=== PATIENT | male | born 1940 | race Caucasian/White ===

== ENCOUNTER 2017-06-16 00:11 | Emergency (ER) | payer MEDICARE ==
[~2017-06-16] VITALS: Ht 177.8 cm; Wt 58.1 kg
[~2017-06-16 00:11] MED LIST: ASPI-484 PO; ASPI-667 PO; VERA240C2 PO; [UNRECOGNIZED DRUG - CODE] PO
[2017-06-16] MEDS ORDERED: ADENOSCAN IV ONE (00:17)
--- NOTE | 2017-06-16 00:19 | PCM.EKG ---
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
[2017-06-16 00:34] LABS: BASOPHIL # 0.1 10^3/uL (0.0-0.1); BASOPHIL % 2.4 % (0.0-0.2); EOSINOPHIL # 0.5 10^3/uL (0.0-0.2); EOSINOPHIL % 8.9 % (0.0-5.0); HEMOGLOBIN 14.2 g/dL (13.9-16.3); LYMPHOCYTES # 1.2 10^3/uL (1.0-4.8); MEAN CELL HGB 30.8 pg (26-34); MEAN CELL HGB CONCENTRATION 33.6 g/dL (33-37); MEAN CORP VOLUME 91.8 fL (78-100); MEAN PLATELET VOLUME 10.6 fL (7.8-11.0); MONOCYTES # 0.6 10^3/uL (0.3-0.8); MONOCYTES % 10.5 % (5.0-12.0); NEUTROPHIL # 3.3 10^3/uL (1.8-7.7); RED CELL DISTRIBUTION WIDTH 13.9 % (11.5-14.5); WHITE BLOOD CELL 5.7 10^3/uL (4.5-11.0)
[2017-06-16] MEDS ORDERED: LOPRESSER ONE (00:51)
[2017-06-16] MEDS ORDERED: LOPRESSER IVP STA (00:53)
--- NOTE | 2017-06-16 00:56 | ER.PDOC ---
General Chief Complaint: General Complaint Stated Complaint: POSS A-FIB Time seen by MD: 00:55 Source: patient Exam Limitations: no limitations History of Present Illness Initial Comments Palpitations Timing/Duration: 1 hour Quality: fast Activities at Onset: rest Associated Symptoms: denies symptoms Prior symptoms/Treatment: Similar symptoms previous, Recenly Seen, Treated by Doctor Allergies: Coded Allergies: No Known Allergies (Unverified , 11/08/15) Past Medical History Medical History: cardiac problems, hypertension Surgical History: other Social History Smoking: non-smoker Alcohol Use: none Drug Use: none Constitutional: no symptoms reported Respiratory: no symptoms reported Cardiovascular: see HPI Gastrointestinal: no symptoms reported Genitourinary: no symptoms reported Musculoskeletal: no symptoms reported All Other Systems: Reviewed and Negative Physical Exam General Appearance: No Apparent Distress, WD/WN HEENT: PERRL/EOMI, Normal ENT Inspection, TMs Normal, Pharynx Normal Neck: Non-Tender, Full Range of Motion, Supple, Normal Inspection Respiratory: chest non-tender, lungs clear, normal breath sounds, no respiratory distress, no accessory muscle use Cardiovascular: Normal Peripheral Pulses, Regular Rate, Rhythm, No Edema, No Gallop, No JVD, No Murmur, Tachycardia Gastrointestinal: Normal Bowel Sounds, No Organomegaly, No Pulsatile Mass, Non Tender, Soft Extremities: Normal Range of Motion, Non-Tender, Normal Inspection, No Pedal Edema, No Calf Tenderness, Normal Capillary Refill Neurologic/Psychiatric: policy intern II-XII NML as Tested, No Motor/Sensory Deficits, Alert, Normal Mood/Affect, Oriented x 3 Skin: Normal Color, Warm/Dry Lymphatic: No Adenopathy Results/Orders Results/Orders Laboratory Tests Test 06/16/17 00:20 White Blood Count 5.7 10^3/uL (4.5-11.0) Red Blood Count 4.61 10^6/uL (4.50-5.90) Hemoglobin 14.2 g/dL (13.9-16.3) Hematocrit 42.3 % (37.0-53.0) Mean Corpuscular Volume 91.8 fL (78-100) Mean Corpuscular Hemoglobin 30.8 pg (26-34) Mean Corpuscular Hemoglobin Concent 33.6 g/dL (33-37) Red Cell Distribution Width 13.9 % (11.5-14.5) Platelet Count 214 10^3/uL (150-400) Mean Platelet Volume 10.6 fL (7.8-11.0) Neutrophils (%) (Auto) 58.0 % (41.0-85.0) Lymphocytes (%) (Auto) 20.0 % (24.0-44.0) Monocytes (%) (Auto) 10.5 % (5.0-12.0) Neutrophils # (Auto) 3.3 10^3/uL (1.8-7.7) Lymphocytes # (Auto) 1.2 10^3/uL (1.0-4.8) Monocytes # (Auto) 0.6 10^3/uL (0.3-0.8) Absolute Immature Granulocyte (auto 0.01 10^3 u/L (0-2) Eosinophils % 8.9 % (0.0-5.0) Basophils % 2.4 % (0.0-0.2) Basophils # 0.1 10^3/uL (0.0-0.1) Eosinophil Count 0.5 10^3/uL (0.0-0.2) Percent Immature Gran (Cell Imm) 0.20 % (0.00-0.50) Progress Progress Patient converted to NSR with Adenosine. Feels fine to go home. EKG/XRAY/CT/US EKG Comments: SVT XRAY: chest (No active disease) #2 EKG: NSR Departure Time of Disposition: 01:23 Disposition: 01 HOME, SELF-CARE Impression: Primary Impression: SVT (supraventricular tachycardia) Condition: Improved Referrals: TONE CAMARENA MYCOLOGY TEACHER (PCP) PRIMARY CARE PROVIDER Additional Instructions: F/U with your Cereal Chemist in 2-3 days Duration or Time Spent with Pa: 90 mins Critical Care Note Total Time (mins): 90 COLLEEN SANTANA MD Jun 16, 2017 00:55
[2017-06-16 01:03] LABS: ALANINE AMINOTRANSFERASE(ML) 23 U/L (12-78); ALKALINE PHOSPHATASE 122 U/L (50-136); ASPARTATE AMINO TRANSFERASE 22 U/L (0-35); CALCIUM 8.6 mg/dL (8.4-10.5); CARBON DIOXIDE 23.3 mmol/L (20.0-32); GLUCOSE 106 mg/dL (70-110)
[2017-06-16 01:20] VITALS: BP 145/77
[2017-06-16] MEDS ORDERED: ADENOSCAN IV STA (01:20)
--- NOTE | 2017-06-16 01:23 | DIREP ---
PROCEDURE:CHEST 1 VIEW COMPARISON:[facility], CR, XRAY CHEST SINGLE VW, 05/16/2017, 03:13 AM. [facility], CR, XRAY CHEST SINGLE VW, 03/13/2017, 12:22 PM. INDICATIONS:Palpitations FINDINGS: LUNGS/PLEURA:No significant pulmonary parenchymal abnormalities. No effusions. VASCULATURE:Normal. Unremarkable pulmonary vasculature. CARDIAC:Normal. No cardiac silhouette abnormality or cardiomegaly. MEDIASTINUM:Normal. No visible mass or adenopathy. BONES:Normal. No fracture or visible bony lesion. OTHER:Negative. CONCLUSION:No acute cardiopulmonary abnormalities. Dictated by: Paresh Upton M.D. on 06/16/2017 at 01:22 AM
--- NOTE | 2017-06-16 01:25 | NUR ---
IV DC'D TIP INTACT, NO BLEEDING
[2017-06-16 01:33] VITALS: BP 145/77
--- NOTE | 2017-06-16 03:33 | PCM.EKG ---
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: TAMIA : 1940 Requested By: COLLEEN SANTANA Order Number: [id number] Reading MD: Colleen SANTANA Measurements Intervals [place] Rate: 91 P: 69 [place]: 142 QRS: 88 QRSD: 98 T: 58 QT: 338 QTc: 415 Interpretive Statements Normal sinus rhythm with sinus arrhythmia Lateral infarct, age undetermined Marked ST abnormality, possible inferior subendocardial injury Abnormal ECG Compared to ECG 05/16/2017 04:17:32 Myocardial infarct finding now present ST (T wave) deviation now present Electronically Signed On 06-16-2017 6:51:29 CDT by Colleen SANTANA Please click the below link to view image of tracing.
== END 2017-06-16 01:28 | disposition home or self-care (01) ==
LOC: ER 00:11
DX: I47.1 Supraventricular tachycardia (principal); I10 Essential (primary) hypertension; R79.1 Abnormal coagulation profile
CPT/HCPCS: 36415; 71045; 80053; 82550; 82553; 83880; 84484; 85025; 85610; 85730; 93005 ×2; 96374; 96375; 99291; 99292; J0153; J3490

== ENCOUNTER 2017-06-17 09:05 | Emergency (ER) | payer MEDICARE ==
[~2017-06-17] VITALS: Ht 177.8 cm; Wt 58.2 kg
--- NOTE | 2017-06-17 09:10 | NUR ---
arrival patient arrived via pov with complaints of palpitations patient has history of svt
--- NOTE | 2017-06-17 09:15 | NUR ---
triage patient placed on monitor svt at 178 noted rt in room upon arrival ekg obtained 20 gauge iv started in right ac
[2017-06-17 09:18] VITALS: BP 161/110
--- NOTE | 2017-06-17 09:20 | NUR ---
medications patient on quality assurance monitor final ns bolus initiated 6mg adenosine iv push patient converted to normal sinus rythm 86
[2017-06-17] MEDS ORDERED: ADENOSCAN IV ONE (09:21)
[2017-06-17] MEDS ORDERED: NS 1000ML 1,000 ML ONE (09:21)
[2017-06-17] MEDS ORDERED: CARDIZEM PO STA (09:32)
--- NOTE | 2017-06-17 09:41 | ER.PDOC ---
General Chief Complaint: Palpitations Stated Complaint: Arrhythmia Time seen by MD: 09:36 Source: patient, family Exam Limitations: no limitations History of Present Illness Initial Comments 76 year old white male with palpitation. History of SVT for a while, recurrent and had similar event yesterday treated in ER. Started having palpitation again around 2 hours prior to consult. No chest pain, no shortness of breath. Quality: fast, pounding heart beat History of: SVT Associated Symptoms: denies symptoms Allergies: Coded Allergies: No Known Allergies (Unverified , 11/08/15) Past Medical History Medical History: arrhythmia, asthma, cardiac problems, COPD, hypertension, other Surgical History: other Social History Smoking: non-smoker Drug Use: none Constitutional: no symptoms reported EENTM: no symptoms reported Respiratory: no symptoms reported Cardiovascular: see HPI Gastrointestinal: no symptoms reported Genitourinary: no symptoms reported Musculoskeletal: no symptoms reported Skin: no symptoms reported Psychiatric/Neurological: no symptoms reported Endocrine: no symptoms reported Hematologic/Lymphatic: no symptoms reported Physical Exam General Appearance: No Apparent Distress, WD/WN HEENT: PERRL/EOMI, Normal ENT Inspection, TMs Normal, Pharynx Normal Neck: Non-Tender, Full Range of Motion, Supple, Normal Inspection Respiratory: chest non-tender, lungs clear, normal breath sounds, no respiratory distress, no accessory muscle use Cardiovascular: No Edema, No Gallop, No JVD, No Murmur, Tachycardia Gastrointestinal: Normal Bowel Sounds, No Organomegaly, No Pulsatile Mass, Non Tender, Soft Rectal: Normal Exam Extremities: Normal Range of Motion, Non-Tender, Normal Inspection, No Pedal Edema, No Calf Tenderness, Normal Capillary Refill 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 Repeat EKG showed NSR 78 Departure Time of Disposition: 10:38 Disposition: 01 HOME, SELF-CARE Impression: Primary Impression: PSVT (paroxysmal supraventricular tachycardia) Condition: Stable Referrals: TONE CAMARENA BLUE LINE HANGER (PCP) PRIMARY CARE PROVIDER Additional Instructions: Follow up PCP RTER prn Diltiazem 30 mg po tid Duration or Time Spent with Pa: 30 JENA ACOSTA MD Jun 17, 2017 09:40
[2017-06-17] MEDS ORDERED: CARDIZEM ONE (09:44)
[2017-06-17 09:50] LABS: BASOPHIL # 0.1 10^3/uL (0.0-0.1); BASOPHIL % 1.8 % (0.0-0.2); EOSINOPHIL # 0.4 10^3/uL (0.0-0.2); EOSINOPHIL % 7.6 % (0.0-5.0); HEMOGLOBIN 13.3 g/dL (13.9-16.3); LYMPHOCYTES # 0.8 10^3/uL (1.0-4.8); LYMPHOCYTES % 14.9 % (24.0-44.0); MEAN CELL HGB 31.4 pg (26-34); MEAN CELL HGB CONCENTRATION 33.8 g/dL (33-37); MEAN CORP VOLUME 93.1 fL (78-100); MEAN PLATELET VOLUME 10.5 fL (7.8-11.0); MONOCYTES # 0.4 10^3/uL (0.3-0.8); NEUTROPHIL # 3.4 10^3/uL (1.8-7.7); NEUTROPHILS % 67.5 % (41.0-85.0); RED CELL DISTRIBUTION WIDTH 13.9 % (11.5-14.5)
--- NOTE | 2017-06-17 10:00 | NUR ---
status patient remains in normal sinus rhythm 78
[2017-06-17 10:14] LABS: CALCIUM 8.1 mg/dL (8.4-10.5); CARBON DIOXIDE 26.9 mmol/L (20.0-32)
--- NOTE | 2017-06-17 10:21 | DIREP ---
PROCEDURE:CHEST 1 VIEW COMPARISON:[facility], CR, XRAY CHEST SINGLE VW, 06/16/2017, 00:40 AM. INDICATIONS:svt FINDINGS: LUNGS/PLEURA:There is pulmonary hyperinflation consistent with underlying COPD. No focal consolidation. No effusions. VASCULATURE:Normal. Unremarkable pulmonary vasculature. CARDIAC:Normal. No cardiac silhouette abnormality or cardiomegaly. MEDIASTINUM:Normal. No visible mass or adenopathy. BONES:Normal. No fracture or visible bony lesion. OTHER:Negative. CONCLUSION:COPD. Dictated by: Arnulfo Bueno M.D. on 06/17/2017 at 10:19 AM
--- NOTE | 2017-06-17 10:41 | PCM.EKG ---
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
--- NOTE | 2017-06-17 10:41 | PCM.EKG ---
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
[2017-06-17] MEDS ORDERED: ADENOSCAN IV STA (10:48)
[2017-06-17 11:15] VITALS: BP 161/110
== END 2017-06-17 10:58 | disposition home or self-care (01) ==
LOC: ER 09:05
DX: I47.1 Supraventricular tachycardia (principal); J44.9 Chronic obstructive pulmonary disease, unspecified; I10 Essential (primary) hypertension; R79.1 Abnormal coagulation profile
CPT/HCPCS: 36415; 71045; 80053; 82550; 82553; 83880; 84484; 85025; 85610; 85730; 93005 ×2; 96374; 99285; J0153; J7030

== ENCOUNTER 2017-06-22 06:46 | Emergency (ER) | payer MEDICARE ==
[~2017-06-22] VITALS: Ht 177.8 cm; Wt 58.1 kg
--- NOTE | 2017-06-22 06:47 | NUR ---
ARRIVAL PT ARRIVED VIA WHEELCHAIR TO ER 3 C/O "RACING HEART BEAT". PT STATES "I THINK MY A-FIB IS ACTING UP". PT PLACED ON SUPERCALENDER OPERATOR. EDP NOTIFIED OF PT ARRIVAL. RT AT BEDSIDE FOR EKG.
[2017-06-22 06:55] VITALS: BP 146/117
[2017-06-22] MEDS ORDERED: ADENOSCAN IV ONE (06:56)
[2017-06-22] MEDS ORDERED: NS 1000ML 1,000 ML ONE (06:56)
--- NOTE | 2017-06-22 07:02 | NUR ---
ADENOSINE ADENOSINE 6MG ADMINSTERED AT THIS TIME. RNX2 AND RT AT BEDSIDE. SUCTION AVAILABLE. PT REMAINS ON VINEYARD SUPERVISOR. PT TOLERATED WELL.
[2017-06-22] MEDS ORDERED: CARDIZEM PO STA (07:08)
[2017-06-22] MEDS ORDERED: ADENOSCAN IV STA (07:08)
--- NOTE | 2017-06-22 07:08 | ER.PDOC ---
General Chief Complaint: Palpitations Stated Complaint: RACING HEART BEAT Time seen by MD: 06:52 Source: patient Exam Limitations: no limitations History of Present Illness Initial Comments Freq shanauuance for pt. Here last week for same. Feels palps but no other c/o like SOB, pain, nausea, weakness. Timing/Duration: 1-3 hours Quality: fast, pounding heart beat Activities at Onset: sleep Associated Symptoms: denies symptoms Allergies: Coded Allergies: No Known Allergies (Unverified , 11/08/15) Past Medical History Medical History: arrhythmia, cardiac problems, hypertension Surgical History: tonsillectomy Social History Smoking: quit greater than 1 year Alcohol Use: occassionally Drug Use: none Constitutional: see HPI EENTM: no symptoms reported Respiratory: no symptoms reported Cardiovascular: see HPI All Other Systems: Reviewed and Negative Physical Exam General Appearance: No Apparent Distress, WD/WN HEENT: PERRL/EOMI Neck: Non-Tender, Full Range of Motion, Normal Inspection Respiratory: chest non-tender, lungs clear, normal breath sounds Cardiovascular: No Edema, Tachycardia, Other (rapid, regular) Gastrointestinal: Normal Bowel Sounds, Non Tender, Soft Neurologic/Psychiatric: No Motor/Sensory Deficits, Alert, Normal Mood/Affect, Oriented x 3 Skin: Normal Color, Warm/Dry Progress Progress Motior and intiial EKG show SVT. Given 6mg Adenosine with conversion to NSR and relief of palpitations. Remained that way during ED stay. Departure Time of Disposition: 07:51 Disposition: 01 HOME, SELF-CARE Impression: Primary Impression: Palpitations Additional Impression: Sustained SVT Condition: Stable Patient Instructions: Supraventricular Tachycardia Referrals: TONE CAMARENA IMPORT CLERK (PCP) PRIMARY CARE PROVIDER Additional Instructions: Increase diltiazem to 60 mg evening dose. Return as needed. Duration or Time Spent with Pa: 60 Critical Care Note Total Time (mins): 30 MARK BAKER DO Jun 22, 2017 07:08
[2017-06-22] MEDS ORDERED: CARDIZEM ONE (07:10)
--- NOTE | 2017-06-22 07:10 | PCM.EKG ---
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1940 Requested By: MARK GRAVES Order Number: [id number] Reading MD: Mark Graves Measurements Intervals [place] Rate: 168 P: [place]: QRS: 62 QRSD: 160 T: 70 QT: 278 QTc: 464 Interpretive Statements Wide QRS tachycardia Nonspecific intraventricular block Abnormal ECG Compared to ECG 06/16/2017 00:29:53 Wide-QRS tachycardia now present Sinus rhythm no longer present Sinus arrhythmia no longer present Myocardial infarct finding no longer present ST (T wave) deviation no longer present Electronically Signed On 06-24-2017 6:58:47 CDT by Mark Graves Please click the below link to view image of tracing.
[2017-06-22 07:13] VITALS: BP 172/98
[2017-06-22 07:22] LABS: BASOPHIL # 0.1 10^3/uL (0.0-0.1); BASOPHIL % 1.6 % (0.0-0.2); EOSINOPHIL # 0.6 10^3/uL (0.0-0.2); EOSINOPHIL % 10.4 % (0.0-5.0); HEMOGLOBIN 13.5 g/dL (13.9-16.3); LYMPHOCYTES # 1.4 10^3/uL (1.0-4.8); LYMPHOCYTES % 23.8 % (24.0-44.0); MEAN CELL HGB 30.8 pg (26-34); MEAN CELL HGB CONCENTRATION 33.3 g/dL (33-37); MEAN CORP VOLUME 92.5 fL (78-100); MEAN PLATELET VOLUME 10.2 fL (7.8-11.0); MONOCYTES # 0.5 10^3/uL (0.3-0.8); MONOCYTES % 9.2 % (5.0-12.0); NEUTROPHIL # 3.2 10^3/uL (1.8-7.7); NEUTROPHILS % 54.8 % (41.0-85.0); RED CELL DISTRIBUTION WIDTH 13.9 % (11.5-14.5); WHITE BLOOD CELL 5.8 10^3/uL (4.5-11.0)
[2017-06-22 07:35] VITALS: BP 154/88
[2017-06-22 07:41] LABS: ALANINE AMINOTRANSFERASE(ML) 17 U/L (12-78); ALKALINE PHOSPHATASE 109 U/L (50-136); ASPARTATE AMINO TRANSFERASE 20 U/L (0-35); CALCIUM 8.4 mg/dL (8.4-10.5); CARBON DIOXIDE 24.8 mmol/L (20.0-32); GLUCOSE 103 mg/dL (70-110)
[2017-06-22 08:00] VITALS: BP 154/82
[2017-06-22 08:03] VITALS: BP 154/88
--- NOTE | 2017-06-22 09:53 | PCM.EKG ---
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: : 1940 Requested By: MARK GRAVES Order Number: [id number] Reading MD: Mark Graves Measurements Intervals [place] Rate: 86 P: 68 [place]: 144 QRS: 89 QRSD: 94 T: 45 QT: 396 QTc: 473 Interpretive Statements Sinus rhythm with premature supraventricular complexes Lateral infarct, age undetermined Marked ST abnormality, possible inferior subendocardial injury Abnormal ECG Compared to ECG 06/16/2017 00:29:53 Atrial premature complex(es) now present Sinus arrhythmia no longer present Myocardial infarct finding still present ST (T wave) deviation still present Electronically Signed On 06-24-2017 6:58:50 CDT by Mark Graves Please click the below link to view image of tracing.
== END 2017-06-22 08:05 | disposition home or self-care (01) ==
LOC: ER 06:46
DX: R00.2 Palpitations (principal); I47.1 Supraventricular tachycardia; I10 Essential (primary) hypertension; Z87.891 Personal history of nicotine dependence
CPT/HCPCS: 36415; 80053; 84484; 85025; 93005 ×2; 96374; 99291; J0153; J7030

== ENCOUNTER 2017-06-28 15:23 | Emergency (ER) | payer MEDICARE ==
[~2017-06-28] VITALS: Ht 177.8 cm; Wt 58.1 kg
[2017-06-28] MEDS ORDERED: ADENOSCAN IV ONE ×3 (15:32→15:37)
--- NOTE | 2017-06-28 15:32 | NUR ---
RT RT IN ROOM FOR EKG
--- NOTE | 2017-06-28 15:33 | NUR ---
ARRIVAL PATIENT ARRIVED TO ED3 VIA W/C WITH SPOUSE, C/O OF HEART RACING, DOES HAVE A HISTORY OF SVT, CARDICA MONITOR APPLIED, CALLED FOR EKG, HEART RATE 169, DOCTOR MISHA TO ROOM, IV INITIATED.
[2017-06-28 15:35] VITALS: BP 167/117
--- NOTE | 2017-06-28 15:38 | NUR ---
MEDICATION ADENOSINE IV PUSHED, DOCTOR CABRAL AT BEDSIDE, NO DECREASE IN HEART RATE. ORDER FOR RECEIVED FOR ADENOSINE 12MG.
--- NOTE | 2017-06-28 15:42 | NUR ---
MEDICATION ADENOSINE 12MG GIVEN IV, DOCTOR HAACKE AND RT AT BEDSIDE. NO DISTRESS NOTED.
[2017-06-28] MEDS ORDERED: ADENOSCAN IV STA ×2 (15:50)
[2017-06-28 15:53] VITALS: BP 195/95
[2017-06-28] MEDS ORDERED: ATROVENT IH STA (15:57)
[2017-06-28] MEDS ORDERED: XOPENEX IH STA (15:57)
--- NOTE | 2017-06-28 16:16 | ER.PDOC ---
General Chief Complaint: Palpitations Stated Complaint: PALPITATIONS Time seen by MD: 16:11 Source: patient Exam Limitations: no limitations History of Present Illness Initial Comments Patient with rapid heart rate. He has a history of recurrent SVT. This occured shortly after using his albuterol inhaler. He has a history of Asthma. he denies any chest pain, just some mild shortness of breath. Timing/Duration: 1/2 hour Quality: fast, pounding heart beat History of: caffeine, SVT Associated Symptoms: shortness of breath, weakness Prior symptoms/Treatment: Similar symptoms previous Allergies: Coded Allergies: No Known Allergies (Unverified , 11/08/15) Home Meds Unable to Obtain Active Prescriptions or Reported Meds Past Medical History Medical History: asthma, cardiac problems (SVT), hypertension Surgical History: other Social History Smoking: non-smoker Alcohol Use: none Drug Use: none Reviewed Nursing Reviewed: Vital Signs, Abn. Noted, Nursing Assessment Constitutional: weakness (Generalized mild ) EENTM: no symptoms reported Respiratory: shortness of breath, wheezing Cardiovascular: palpitations Gastrointestinal: no symptoms reported Genitourinary: no symptoms reported Musculoskeletal: no symptoms reported Skin: no symptoms reported Psychiatric/Neurological: no symptoms reported Endocrine: no symptoms reported Hematologic/Lymphatic: no symptoms reported All Other Systems: Reviewed and Negative Physical Exam General Appearance: WD/WN, Mild Distress, Thin HEENT: PERRL/EOMI, Normal ENT Inspection, TMs Normal, Pharynx Normal Neck: Non-Tender, Full Range of Motion, Supple, Normal Inspection Respiratory: wheezing (much worse after IV Adenosine) Cardiovascular: Tachycardia Gastrointestinal: Normal Bowel Sounds, No Organomegaly, No Pulsatile Mass, Non Tender, Soft Extremities: Normal Range of Motion, Non-Tender, Normal Inspection, No Pedal Edema, No Calf Tenderness, Normal Capillary Refill Neurologic/Psychiatric: 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 Patient feeling much better, anxious to go home (17:28) EKG/XRAY/CT/US XRAY: chest (NAD) Departure Time of Disposition: 17:28 Disposition: 01 HOME, SELF-CARE Impression: Primary Impression: SVT (supraventricular tachycardia) Additional Impression: Asthma Qualified Codes: J45.909 - Unspecified asthma, uncomplicated Condition: Improved Patient Instructions: Supraventricular Tachycardia Referrals: TONE CAMARENA YEAST DISTILLER (PCP) PRIMARY CARE PROVIDER Additional Instructions: Keep appointment with Dr. Aguayo on July 06. New Rx for Xopenex, and Atrovent for asthma. Follow up with PCP in 3-4 days. Scripts Unable to Obtain Active Prescriptions or Reported Meds Duration or Time Spent with Pa: 1 hr BECKY CABRAL DO Jun 28, 2017 16:16
[2017-06-28 16:26] LABS: BASOPHIL # 0.1 10^3/uL (0.0-0.1); BASOPHIL % 1.9 % (0.0-0.2); EOSINOPHIL # 0.6 10^3/uL (0.0-0.2); EOSINOPHIL % 11.3 % (0.0-5.0); HEMOGLOBIN 13.3 g/dL (13.9-16.3); LYMPHOCYTES # 0.9 10^3/uL (1.0-4.8); LYMPHOCYTES % 16.9 % (24.0-44.0); MEAN CELL HGB 31.2 pg (26-34); MEAN CELL HGB CONCENTRATION 33.6 g/dL (33-37); MEAN PLATELET VOLUME 10.3 fL (7.8-11.0); MONOCYTES # 0.5 10^3/uL (0.3-0.8); MONOCYTES % 9.3 % (5.0-12.0); NEUTROPHIL # 3.3 10^3/uL (1.8-7.7); NEUTROPHILS % 60.4 % (41.0-85.0); RED CELL DISTRIBUTION WIDTH 13.6 % (11.5-14.5); WHITE BLOOD CELL 5.4 10^3/uL (4.5-11.0)
--- NOTE | 2017-06-28 16:26 | PCM.EKG ---
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 Reading MD: Naisr Cabral Measurements Intervals [place] Rate: 82 P: 67 PA: 134 QRS: 87 QRSD: 104 T: 48 QT: 392 QTc: 457 Interpretive Statements Normal sinus rhythm Lateral infarct, age undetermined ST & T wave abnormality, consider inferior ischemia Abnormal ECG Compared to ECG 06/22/2017 07:12:36 Possible ischemia now present SVT no longer present Myocardial infarct finding still present ST Changes Laterally Electronically Signed On 06-29-2017 6:35:34 CDT by Nasir Cabral Please click the below link to view image of tracing.
--- NOTE | 2017-06-28 16:27 | PCM.EKG ---
[facility] Test Date: 2017-06-28 Test Time: 15:35:45 Pat Name: ASCENCION LAZARO Department: [id number] Room: Gender: M Electronic Wirer: RT : 1940 Requested By: NASIR CABRAL Order Number: [id number] Reading MD: Nasir Cabral Measurements Intervals [place] Rate: 169 P: CT: QRS: 56 QRSD: 162 T: 70 QT: 274 QTc: 459 Interpretive Statements SVT Abnormal ECG Compared to ECG 06/22/2017 07:12:36 SVT Electronically Signed On 06-29-2017 6:34:16 CDT by Nasir Cabral Please click the below link to view image of tracing.
--- NOTE | 2017-06-28 16:41 | DIREP ---
PROCEDURE:CHEST 1 VIEW COMPARISON:[facility], CR, XRAY CHEST SINGLE VW, 06/17/2017, 09:41 AM. INDICATIONS:palpitations FINDINGS: LUNGS/PLEURA:Hyperinflation and chronic interstitial changes. No infiltrate or pleural effusion. CARDIAC:Normal cardiac silhouette and normal pulmonary vascularity. Mildly calcified tortuous aorta. MEDIASTINUM:Normal. BONES:Normal. OTHER:No additional findings. CONCLUSION:COPD. No acute cardiopulmonary process or significant change. Dictated by: Mariah Tee MD on 06/28/2017 at 04:39 PM
[2017-06-28 16:58] LABS: ALANINE AMINOTRANSFERASE(ML) 10 U/L (12-78); ALKALINE PHOSPHATASE 102 U/L (50-136); ASPARTATE AMINO TRANSFERASE 18 U/L (0-35); CALCIUM 8.4 mg/dL (8.4-10.5); CARBON DIOXIDE 26.8 mmol/L (20.0-32); GLUCOSE 128 mg/dL (70-110)
[2017-06-28] MEDS ORDERED: NS 1000ML 1,000 ML IV ONE (17:30)
--- NOTE | 2017-06-28 17:43 | NUR ---
IV 20G IV D/C'D TIP INTACT TO RIGHT AC, NO SIGN OF INFILTRATION NOTED.
[2017-06-28 17:56] VITALS: BP 195/95
== END 2017-06-28 16:45 | disposition home or self-care (01) ==
LOC: ER 15:23
DX: I47.1 Supraventricular tachycardia (principal); J45.909 Unspecified asthma, uncomplicated; I10 Essential (primary) hypertension; R53.1 Weakness
CPT/HCPCS: 36415; 71045; 80053; 82550; 82553; 83880; 84484; 85025; 85379; 85610; 85730; 86677; 93005 ×2; 94640; 96374; 99285; J0153 ×3

== ENCOUNTER 2017-07-10 19:19 | Inpatient (IN) | payer MEDICARE ==
[~2017-07-10] VITALS: Ht 177.8 cm; Wt 58.2 kg
[2017-07-10 19:27] VITALS: BP 170/131
[2017-07-10] MEDS ORDERED: ADENOSCAN IV ONE (19:29)
[2017-07-10] MEDS ORDERED: NS 1000ML 1,000 ML ONE (19:29)
--- NOTE | 2017-07-10 19:31 | PCM.EKG ---
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 : 1940 Requested By: COLLEEN SANTANA Order Number: [id number] Reading MD: Colleen SANTANA Measurements Intervals [place] Rate: 156 P: [place]: QRS: 50 QRSD: 194 T: -72 QT: 310 QTc: 499 Interpretive Statements Wide QRS tachycardia Nonspecific intraventricular block Abnormal ECG Compared to ECG 06/28/2017 15:52:34 Wide-QRS tachycardia now present Sinus rhythm no longer present Myocardial infarct finding no longer present ST (T wave) deviation no longer present Possible ischemia no longer present Electronically Signed On 07-11-2017 5:34:47 CDT by Colleen SANTANA Please click the below link to view image of tracing.
[2017-07-10] MEDS ORDERED: ASPIRIN ONE (19:35)
[2017-07-10 19:37] LABS: BASOPHIL # 0.1 10^3/uL (0.0-0.1); BASOPHIL % 1.6 % (0.0-0.2); EOSINOPHIL # 0.5 10^3/uL (0.0-0.2); EOSINOPHIL % 8.9 % (0.0-5.0); HEMOGLOBIN 13.8 g/dL (13.9-16.3); LYMPHOCYTES # 1.2 10^3/uL (1.0-4.8); LYMPHOCYTES % 21.5 % (24.0-44.0); MEAN CELL HGB CONCENTRATION 33.7 g/dL (33-37); MEAN CORP VOLUME 92.1 fL (78-100); MEAN PLATELET VOLUME 10.5 fL (7.8-11.0); MONOCYTES # 0.5 10^3/uL (0.3-0.8); MONOCYTES % 8.4 % (5.0-12.0); NEUTROPHIL # 3.4 10^3/uL (1.8-7.7); NEUTROPHILS % 59.2 % (41.0-85.0); RED CELL DISTRIBUTION WIDTH 13.4 % (11.5-14.5); WHITE BLOOD CELL 5.7 10^3/uL (4.5-11.0)
--- NOTE | 2017-07-10 19:41 | PCM.EKG ---
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
[2017-07-10 19:44] VITALS: BP 158/86
--- NOTE | 2017-07-10 19:56 | ER.PDOC ---
General Chief Complaint: Chest Pain-Cardiac Nature Stated Complaint: CHEST PAIN Time seen by MD: 19:55 Source: patient Exam Limitations: no limitations History of Present Illness Initial Comments Sternal chest pain Timing/Duration: 4-6 hours Severity/Quality: moderate, sharp Radiation: no radiation Nitro Today/Relief: No Nitro Taken Today Aspirin Today: 325 mg x 1 Associated Symptoms: palpitations Allergies: Coded Allergies: No Known Allergies (Unverified , 11/08/15) Home Meds Unable to Obtain Active Prescriptions or Reported Meds Past Medical History Medical History: asthma, cardiac problems, COPD, emphysema, GERD, hypertension , other Surgical History: other Social History Smoking: non-smoker Alcohol Use: none Drug Use: none Constitutional: no symptoms reported EENTM: no symptoms reported Respiratory: no symptoms reported Cardiovascular: see HPI Gastrointestinal: no symptoms reported Genitourinary: no symptoms reported Musculoskeletal: no symptoms reported All Other Systems: Reviewed and Negative Physical Exam General Appearance: No Apparent Distress, WD/WN HEENT: PERRL/EOMI Neck: Non-Tender, Full Range of Motion, Supple, Normal Inspection Respiratory: chest non-tender, lungs clear, normal breath sounds, no respiratory distress, no accessory muscle use Cardiovascular: Normal Peripheral Pulses, Regular Rate, Rhythm, No Edema, No Gallop, No JVD, No Murmur, Tachycardia Gastrointestinal: Normal Bowel Sounds, No Organomegaly, No Pulsatile Mass, Non Tender, Soft Extremities: Normal Range of Motion, Non-Tender, Normal Inspection, No Pedal Edema, No Calf Tenderness, Normal Capillary Refill 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, No Motor/Sensory Deficits, Alert, Normal Mood/Affect, Oriented x 3 Skin: Normal Color, Warm/Dry Lymphatic: No Adenopathy Results/Orders Results/Orders Laboratory Tests Test 07/10/17 19:30 White Blood Count 5.7 10^3/uL (4.5-11.0) Red Blood Count 4.45 10^6/uL (4.50-5.90) Hemoglobin 13.8 g/dL (13.9-16.3) Hematocrit 41.0 % (37.0-53.0) Mean Corpuscular Volume 92.1 fL (78-100) Mean Corpuscular Hemoglobin 31.0 pg (26-34) Mean Corpuscular Hemoglobin Concent 33.7 g/dL (33-37) Red Cell Distribution Width 13.4 % (11.5-14.5) Platelet Count 213 10^3/uL (150-400) Mean Platelet Volume 10.5 fL (7.8-11.0) Neutrophils (%) (Auto) 59.2 % (41.0-85.0) Lymphocytes (%) (Auto) 21.5 % (24.0-44.0) Monocytes (%) (Auto) 8.4 % (5.0-12.0) Neutrophils # (Auto) 3.4 10^3/uL (1.8-7.7) Lymphocytes # (Auto) 1.2 10^3/uL (1.0-4.8) Monocytes # (Auto) 0.5 10^3/uL (0.3-0.8) Absolute Immature Granulocyte (auto 0.02 10^3 u/L (0-2) Eosinophils % 8.9 % (0.0-5.0) Basophils % 1.6 % (0.0-0.2) Basophils # 0.1 10^3/uL (0.0-0.1) Eosinophil Count 0.5 10^3/uL (0.0-0.2) Percent Immature Gran (Cell Imm) 0.40 % (0.00-0.50) EKG/XRAY/CT/US EKG Comments: SVT XRAY: chest (No active disease) #2 EKG: NSR Departure Time of Disposition: 20:28 Disposition: 09 ADMITTED INPATIENT Impression: Primary Impression: Chest pain Additional Impression: SVT (supraventricular tachycardia) Condition: Improved Referrals: [facility] COPYWRITER (PCP) PRIMARY CARE PROVIDER Scripts Unable to Obtain Active Prescriptions or Reported Meds Comments Admitted to Dr. Aguayo Duration or Time Spent with Pa: 60 mins Critical Care Note Total Time (mins): 60 Problem Qualifiers Primary Impression: Chest pain Chest pain type: unspecified Qualified Codes: R07.9 - Chest pain, unspecified COLLEEN SANTANA MD Jul 10, 2017 19:56
[2017-07-10 20:02] VITALS: BP 139/87
[2017-07-10 20:02] LABS: ALANINE AMINOTRANSFERASE(ML) 23 U/L (12-78); ALKALINE PHOSPHATASE 98 U/L (50-136); ASPARTATE AMINO TRANSFERASE 19 U/L (0-35); CALCIUM 8.4 mg/dL (8.4-10.5); CARBON DIOXIDE 24.3 mmol/L (20.0-32); GLUCOSE 169 mg/dL (70-110)
--- NOTE | 2017-07-10 20:03 | DIREP ---
PROCEDURE:CHEST 1 VIEW COMPARISON:[facility], CR, XRAY CHEST SINGLE VW, 06/28/2017, 04:13 PM. INDICATIONS:Chest pain FINDINGS: LUNGS/PLEURA:No significant pulmonary parenchymal abnormalities. No effusions. VASCULATURE:Normal. Unremarkable pulmonary vasculature. CARDIAC:Normal. No cardiac silhouette abnormality or cardiomegaly. MEDIASTINUM:Normal. No visible mass or adenopathy. BONES:Normal. No fracture or visible bony lesion. OTHER:Negative. CONCLUSION:No acute cardiopulmonary process. Dictated by: Arnulfo Bueno M.D. on 07/10/2017 at 08:02 PM
--- NOTE | 2017-07-10 20:30 | PRM.ACF1 ---
Date and Time Date and Time Time: 20:29 Admission Criteria Forms CHEST PAIN Clinical Indications for Admission to Inpatient Care (Place 'X' for any and all applicable criteria): Admission is indicated for chest pain and ANY ONE of the following (1)(2)(3)(4)( 5)(6)(7): [ ]I. Angina with acute coronary syndrome (Also use Myocardial Infarction or Angina guideline) [ x]II. Hemodynamic instability indicated by 1 or more of the following(1)(2)(3 )(4)(5)(6)(7): [ ]a) Vital sign abnormality not readily corrected by appropriate treatment within 12 to 24 hours indicated by 1 or more of the following: [ ]i. Tachycardia as indicated by 1 or more of the following(1)(2 ): [ ]1. Heart rate greater than 100 beats per minute in adult or child age 6 years or older [ ]2. Heart rate greater than 115 beats per minute in child 3 to 5 years of age [ ]3. Heart rate greater than 125 beats per minute in child 1 or 2 years of age [ ]4. Heart rate greater than 130 beats per minute in 6 to 11 months of age [ ]5. Heart rate greater than 150 beats per minute in 3 to 5 months of age [ ]6. Heart rate greater than 160 beats per minute in 1 or 2 months of age [ ]ii. Hypotension as indicated by ALL of the following (1)(2)(3)(4): [ ]A. Not patient baseline (eg, healthy adult with low SBP) or intentional therapeutic goal (eg, low SBP as treatment goal in heart failure) [ ]B. Low blood pressure as indicated by 1 or more of the following : [ ]1. New onset of SBP less than 90 mm Hg in adult or child 10 years or older [ ]2. New decrease in SBP greater than 40 mm Hg in adult or child 10 years or older [ ]3. Mean arterial pressure[A] less than 70 mm Hg in adult or child 10 years or older [ ]4. New onset of SBP less than sum of 70 mm Hg plus twice patient's age in years in child 1 to 9 years of age [ ]5. New onset of SBP less than 70 mm Hg in infant 1 to 11 months of age [ ]iii. Orthostatic vital sign changes as indicated by 1 or more of the following (1): [ ]A. Fall in SBP of 20 mm Hg or more 1 to 3 minutes after patient sits or stands from recumbent position [ ]B. Fall in DBP of 10 mm Hg or more 1 to 3 minutes after patient sits or stands from recumbent position [ ]b. Vital sign abnormality that is severe indicated by 1 or more of the following: [ ]i. inadequate perfusion indicated by 1 or more of the following [ ]A. Lactic acidosis, with lactic acid greater than 18 mg/dL (2 mmol/L) or base excess < -5mEq/L [ ]B. New abnormal capillary refill (longer than 3 seconds) [ ]C. Other metabolic acidosis (arterial pH < 7.35)not otherwise explanied [ ]D. Myocardial ischemia [ ]E. Altered mental status indicated by 1 or more of the following(1)(2)(3)(4): [ ]1. Confusional state (eg,disorientation,difficulty following commands,deficit in attention) [ ]2. Lethargy (awake or arousal,but with drowsiness;reduced awareness of self and environment) [ ]3. Obtundation(ie,arousal with strong stimuli,lessened interest in environment, slowed responses to stimulation) [ ]4. Stupor (may be arousal but patient does not return to normal baseline level of awareness) [ ]5. Coma (not arousal) [ ]F. Reduced urine output as indicated by 1 or more of the following(1)(2): [ ] 1. Urine output less than 0.5 mL/kg/hour for 6 hours in adult [ ]2. Anuria (urine output less than 0.1 mL/kg/hour) for 4 hours in any age group [ ]3. Reduced output in child as indicated by 1 or more of the following (3): [ ]i. Urine output less than 2 mL/kg/hour for 6 hours in infant younger than 2 years [ ]ii. Urine output less than 1 mL/kg/hour for 6 hours in child younger than 12 years [ ]iii. Urine output less than 0.75 mL/kg/h [ ]ii. Mean arterial pressure[A] less than 60 mm Hg [ ]iii. Mean arterial pressure[A] less than 70 mm Hg after 30 minutes of appropriate treatment (eg, fluid resuscitation) [ ]iv. IV inotropic or vasopressor medication required to maintain adequate blood pressure [ ]v. Sustained heart rate greater than 120 beats per minute in adult or child 6 years or older [ ]III. Respiratory distress as indicated by ALL of the following [ ]a. Patient with 1 or more of the following: [ ]i. Dyspnea (difficulty breathing) [ ]ii. Tachypnea as indicated by respiratory rate of 1 or more of the following(1)(2): [ ]1. Greater than 18 breaths per minute in adult or child age 12 years or older [ ]2. Greater than 22 breaths per minute in child 6 to 11 years of age [ ]3. Greater than 25 breaths per minute in child 3 to 5 years of age [ ]4. Greater than 30 breaths per minute in child 1 or 2 years of age [ ]5. Greater than 40 breaths per minute in infant 6 to 11 months of age [ ]6. Greater than 45 breaths per minute in infant 3 to 5 months of age [ ] 7. Greater than 60 breaths per minute in infant 1 or 2 months of age [ ]iii. Abnormal breathing pattern (eg, chest retractions) [ ]iv. Other evidence of difficulty breathing [ ]b. Evidence of respiratory compromise indicated by 1 or more of the following: [ ]i. Hypoxemia as indicated by 1 or more of the following (1): [ ]1. Previously normal respiratory status with 1 or more of the following: [ ]A. Arterial oxygen saturation (SaO2) less than 90% or arterial partial pressure of oxygen (PO2) less than 60 mm Hg (8.0 kPa) on room air[A] [ ]B. Oxygen required to keep SaO2 greater than 90% or PO2 greater than 60 mm Hg (8.0 kPa) [ ]2. Chronic lung disease with 1 or more of the following (2): [ ]A. New requirement for supplemental oxygen to keep SaO2 at baseline or acceptable level [ ]B. Required supplemental oxygen performable only in acute inpatient setting [ ]ii. Altered mental status indicated by 1 or more of the following(1)(2) (3)(4): [ ]a. Confusional state (eg,disorientation,difficulty following commands,deficit in attention) [ ]b. Lethargy (awake or arousal,but with drowsiness;reduced awareness of self and environment) [ ]c. Obtundation(ie,arousal with strong stimuli,lessened interesting environment, slowed responses to stimulation) [ ]d. Stupor (may be arousal but patient does not return to normal baseline level of awareness) [ ]e. Coma (not arousal) [ ]iii. Other evidence of respiratory compromise (eg, pulmonary edema on chest x-ray) [ ]IV. Chest pain indicative of serious diagnosis other than coronary artery disease (e.g., aortic dissection) Extended stay beyond goal length of stay may be needed for (3)(4) (10) (45) (48) [ ]I. Specific condition diagnosed after evaluation that requires ongoing inpatient care eg.pulmonary embolism, aortic dissection) (49) (50) (51) [ ]II. Myocardial infarction [ ]III.Unstable angina [ ]V. Continued suspicion of acute coronary syndrome with inability to complete needed cardiac evaluation (eg, patient clinically unable to undergo stress testing) [ ]a. Patient may require alternative noninvasive or invasive testing( eg,cardiac catheterization) The original [employer] content created by [employer] has been revised. The portions of the content which have been revised are identified through the use of italic text or in bold , and [employer] has neither reviewed nor approved the modified material. All other unmodified content is copyright [employer]. COLLEEN SANTANA MD Jul 10, 2017 20:30
[2017-07-10] MEDS ORDERED: FLUT1AER IH (20:37)
[2017-07-10] MEDS ORDERED: METO1TAB31 PO (20:37)
[2017-07-10] MEDS ORDERED: ASPI-484 PO (20:37)
[2017-07-10] MEDS ORDERED: CALAN ONE (20:49)
[2017-07-10] MEDS ORDERED: NS 1000ML/KCL 20MEQ 1,000 ML IV ONE (20:49)
[2017-07-10] MEDS: CALAN PO SCH (21:00)
[2017-07-10] MEDS ORDERED: CALAN PO SCH (21:00)
[2017-07-10] MEDS: NS 1000ML/KCL 20MEQ 1,000 ML IV SCH (21:01)
[2017-07-10 21:04] VITALS: BP 140/74
[2017-07-10 22:05] VITALS: BP 142/76
[2017-07-11] MEDS ORDERED: PHENERGAN PO PRN
[2017-07-11] MEDS ORDERED: VALIUM PO PRN
[2017-07-11 03:01] VITALS: BP 128/68
[2017-07-11 05:52] LABS: CALCIUM 7.8 mg/dL (8.4-10.5); CARBON DIOXIDE 26.4 mmol/L (20.0-32)
[2017-07-11 06:23] VITALS: BP 163/77
[2017-07-11] MEDS: NS 1000ML/KCL 20MEQ 1,000 ML IV SCH ×2 (06:43→16:30)
[2017-07-11 07:26] VITALS: BP 137/76
--- NOTE | 2017-07-11 07:44 | PCM.EKG ---
[facility] Test Date: 2017-07-11 Test Time: 07:45:57 Pat Name: ASCENCION LAZARO [id number] Gender: M Co Op: ARA : 1940 Requested By: NARDA MCCLAIN Order Number: [id number] Reading MD: Narda Mcclain Measurements Intervals [place] Rate: 51 P: 72 SC: 132 QRS: 78 QRSD: 126 T: 45 QT: 476 QTc: 438 Interpretive Statements Sinus bradycardia Ngivj-Cnrqsyxiz-Iprgd Abnormal ECG Compared to ECG 07/10/2017 19:41:57 Ventricular preexcitation now present Sinus rhythm no longer present ST (T wave) deviation no longer present Electronically Signed On 07-13-2017 9:34:19 CDT by Narda Mcclain Please click the below link to view image of tracing.
[2017-07-11] MEDS: CALAN PO SCH ×3 (09:00→21:00)
[2017-07-11] MEDS ORDERED: NS 1000ML 1,000 ML ONE ×2 (09:40→11:10)
[2017-07-11] MEDS ORDERED: HEPARIN ONE (09:40)
[2017-07-11] MEDS ORDERED: VERSED ONE (09:41)
[2017-07-11] MEDS ORDERED: XYLOCAINE ONE (09:41)
[2017-07-11] MEDS ORDERED: SUBLIMAZE ONE (09:41)
--- NOTE | 2017-07-11 11:25 | HPH ---
ADMIT DATE: 07/10/2017 CHIEF COMPLAINT: Rapid irregular heartbeat, chest heaviness, tightness and shortness of breath. 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 His chest pain improved. He has had recurrent episodes of chest heaviness, tightness along with this tachycardia. The post-conversion EKG definitely shows a delta wave and a short VT interval. 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 When he has got a wide QRS complex, the rate is around 180. Hence, because of his chest pain at age 76 with underlying history of dyslipidemia and family history positive for heart problems, the patient was admitted to rule out acute coronary ischemic substrate and will probably have a cardiac catheterization before referring to Dr. Etienne for ablation for his WPW syndrome and AVNRT and a broad QRS complex tachycardia related to antegrade conduction through the accessory pathway. ALLERGIES: NONE KNOWN. MEDICATIONS: He has been on metoprolol 25 mg once a day. He uses inhalers on p.r.n. basis. He is not on regular asthma medications. He takes Breo Ellipta 1 puff daily, which was given to him by me, aspirin 81 mg once a day, metoprolol-HCT 25-12.5 once a day. PAST MEDICAL HISTORY: History of questionable hypertension, tachyarrhythmias, GERD manifestation, was told that he had COPD at one time, mild hypertension. SOCIAL HISTORY: Nonsmoker, no ethanol abuse. FAMILY HISTORY: Positive for heart problem. PHYSICAL EXAMINATION: GENERAL: He is alert, awake, oriented. VITAL SIGNS: He weighs 58 kilograms, 177 cm tall and BMI of 18.4, leant and asthenically built with a post-conversion pulse rate of 60 and delta wave is noted on the monitor, blood pressure 135/76, respirations 16. HEENT: Unremarkable. NECK: No JVD, no carotid bruits. CHEST: Thin chest wall. LUNGS: Poor respiratory effort. Poor air entry bilaterally. HEART: Sounds were normal. ABDOMEN: Scaphoid, soft, nontender, no organomegaly. EXTREMITIES: Distal pulses fairly well felt. NEUROLOGIC: Intact. LABORATORY DATA: His potassium was 4.1. IMPRESSION: WPW syndrome, SVT, at times conduction antegrade through the accessory pathway, history of recurring chest pain with tachyarrhythmias, rule out underlying significant coronary artery disease at age 76. RECOMMENDATIONS: At this time, we will do cardiac catheterization, assess for a significant coronary artery disease and probably we will refer him for ablation. We will start him on verapamil 80 mg 3 times a day. Laxmicprakash Aguayo MD DR: SHANA/dori JOB# [id number]
[2017-07-11 11:57] VITALS: BP 177/78
--- NOTE | 2017-07-11 13:42 | CCR[facility] ---
DATE OF SERVICE: PRECATHETERIZATION DIAGNOSES: SVT, broad QRS complex tachycardia, AVNRT, WPW syndrome, ST depression during SVT with significant angina, recurring episodes of chest pain, angina of classic nature with SVTs, assess for coronary artery disease, history of hypertension and dyslipidemia. POSTCATHETERIZATION DIAGNOSES: Heavily calcified left main extending into the proximal half of the LAD and the circumflex. Proximal LAD has got an 80% concentric lesion followed by another 75% lesion and the mid LAD has got a concentric focal 90% stenosis and the distal vessel is a good target vessel for revascularization. The first diagonal branch has got a mid 75% stenosis. Circumflex proximally up to the mid level is heavily calcified, proximal 90% stenosis is noted. It is an eccentric stenosis with the distal calcification and the distal circumflex is a fairly large size vessel. The first obtuse marginal branch has an ostial 95% stenosis, but it is a good target vessel for revascularization. Right coronary artery is heavily calcified and it is a dominant vessel with a mid right coronary artery, having a concentric 70% stenosis and the distal right coronary artery prebifurcation has a 70-75% stenosis. The posterior descending branch is a small vessel, not a good target vessel for revascularization and the distal right coronary artery and the AV karolyn branch are very small caliber vessels. Left ventricle is mildly dilated with LVEDP of 20-25 mm with LV ejection fraction of 50%. Peripheral arteriogram shows severe ectasia of the descending aorta, patent both renal arteries and the nephrogram effect of both kidneys was normal and the distal aorta is ectatic with diffuse calcification of the distal aorta extending into both iliacs into the superficial femoral artery up to the level of popliteal with a mild diffuse atherosclerosis all along the course of both vessels up to the level of popliteal, but no flow obstructive disease was documented, good distal runoff up to the level of popliteal and distally and the trifurcation on the right side beyond the popliteal, was visualized on the left side. Due to dilution of the dye, could not establish the distal circulation beyond the popliteal. ANESTHESIA: 2% lidocaine. PREOPERATIVE MEDICATIONS: Phenergan 50 mg p.o., Valium 2.5 mg p.o., Versed 2 mg IV, fentanyl 25 mcg IV. ANTICOAGULATION: Heparin 2000 units intra-arterially, 2000 units in the flush solution, 1000 units in solution. Dye is Omnipaque. Total amount is 120 mL. CATHETERS: JL4 6-Bruneian, JR4 6-Bruneian, and 6-Bruneian angled pigtail catheter. ARTERIAL TIME: 23 minutes. FLUOROSCOPY TIME: 4.1 minutes. PROCEDURES: Left heart catheterization, bilateral selective coronary arteriography, left ventriculography and peripheral arteriography by right femoral Dorothy approach. Mynx closure device used by Dr. Schneider to achieve hemostasis. NARRATION OF PROCEDURE: Under local anesthesia, the right femoral artery was punctured using open needle technique, and 6-Bruneian Cordis sheath was introduced into the femoral artery. Side port of the sheath was used for continuous monitoring of femoral arterial pressure. Subsequently, JL4 6-Bruneian left Dorothy coronary catheter was introduced over a guidewire and navigated across the ascending aorta, and selective cannulation of left coronary artery was achieved. Left coronary arteriography was performed in CYMRAES and WOLFE projections using craniocaudal angulations for adequate visualization of all the branches. This catheter was then exchanged with JR4 6-Bruneian right coronary catheter which was manipulated, and selective cannulation of right coronary artery was achieved. Right coronary arteriography was performed in CYMRAES and AP projections. Right coronary catheter was then exchanged with 6-Bruneian angled pigtail catheter which was navigated across the aortic valve. Hemodynamics were measured, and left ventriculography was performed in 30-degree WOLFE projection using 35 mL of Isovue at 12 mL/sec at 600 PSI. Patient tolerated the procedure well. HEMODYNAMICS: LVEDP is 20-25 mm, LV pressure is 170/25, femoral artery pressure initially was 204/73 and subsequently 170/83 with mean of 95. No gradient across the aorta. 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 The right coronary artery has got a 70% stenosis, but the distal vessel posterior descending branch is not a good target vessel for revascularization and probably right coronary artery would be best served by a PCI. At the present time, the patient should probably undergo revascularization with bypass surgery with FERNANDEZ graft to the LAD and a vein graft to the diagonal branch and then the vein graft to the first obtuse marginal branch and the right coronary artery to be left at the present time for a later date PCI to achieve full revascularization since the posterior descending branch is a very small vessel. Peripheral arteriogram is consistent with diffuse atherosclerosis without any flow obstruction and optimization of medical therapy with a high intensity statin and dietary restriction and graduated exercise would be helpful. Since the patient has got WPW syndrome along with severe critical triple vessel disease, he probably needs an ablation because of recurrent episodes of SVT, which subject him to provoked ischemic substrate and at the present time we will have EP consultation and cardiovascular surgeon consultation for both procedures. Laxmichand MD Olivier DR: SHANA/dori JOB# [id number]
[2017-07-11 15:51] VITALS: BP 134/66
--- NOTE | 2017-07-11 16:39 | PCM.EKG ---
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
[2017-07-11 21:41] VITALS: BP 139/74
[2017-07-12] MEDS: NS 1000ML/KCL 20MEQ 1,000 ML IV SCH ×2 (00:03→12:30)
[2017-07-12 00:17] VITALS: BP 136/75
[2017-07-12 05:22] VITALS: BP 159/70
[2017-07-12] MEDS: CALAN PO SCH (06:54)
[2017-07-12 08:09] VITALS: BP 191/94
[2017-07-12] MEDS ORDERED: VERA80TA PO (10:20)
[2017-07-12] MEDS ORDERED: ATOR40TA PO (10:20)
[2017-07-12] MEDS ORDERED: LOSA50TA2 PO (10:20)
[2017-07-12 12:44] VITALS: BP 145/74
[2017-07-12 13:13] VITALS: BP 145/74
--- NOTE | 2017-07-12 19:45 | DSH ---
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, antegrade conduction through the accessory pathway cannot be excluded, wide QRS complex, tachycardia in the past, WPW syndrome, short ME interval and early delta wave on the upstroke of the R-wave and hypertension, hypertensive heart disease, history of angina induced by SVT, multiple episodes of SVT in the past, not responsive to beta blockers, chronic diastolic heart failure, severe triple vessel coronary artery disease requiring revascularization with bypass surgery with severe heavy calcification of the LAD, circumflex, and the critical 80-90%, multiple lesions with good target on the LAD and a critical circumflex 80-90% stenosis and good target first obtuse marginal branch with an ostial 75-80% stenosis and the right coronary artery 70% mid stenosis. Posterior descending branch is small vessel, which probably should be best revascularized with PCI of the RCA, intact LV systolic function, peripheral atherosclerosis with ectasia and severe atherosclerosis of the distal aorta and both iliacs and SFAs but no flow restriction. Please refer to my history and physical to the point of my impression. HOSPITAL COURSE: The patient is a 76-year-old white male who I saw last week and he had been in the Emergency Room several times with SVT and he was on metoprolol and I had decided that he needs an ablation and Dr. Diop had done noninvasive evaluation and apparently his myocardial perfusion imaging post-Lexiscan was not suggestive of significant ischemia, but he has had angina every time he has an SVT and with ST depression and he came to the Emergency Room on 07/10/2017 with chest heaviness, tightness and rapid heart rate of 170 and was noted to be in SVT and Adenocard 6 mg was given and he converted back to regular sinus rhythm showing a delta wave and a short ME interval and a WPW syndrome with a rate of 60-65 and in view of history of significant angina, cardiac catheterization revealed above findings of severe triple vessel disease, intact LV systolic function and peripheral ectasia and atherosclerosis of the descending aorta extending into both legs iliacs and SFAs up to the popliteal level, but no definite flow restriction and runoff was noted distally also and the patient has severe heavy calcification in all the coronary arteries. In view of these findings, he needs ablation because of recurrent episodes of SVT along with bypass surgery and he will be sent to [place] to Dr. Jayden Adams who is an crisis intervention specialist along with the surgeon, on Lipitor 40 mg once a day, losartan 50 mg once a day, verapamil 80 mg 3 times a day, aspirin 81 mg once a day, he has got a history of asthma, Breo Ellipta 1 puff daily and I stopped his metoprolol. In view of asthma, verapamil would be better tolerated and he has an appointment on Monday07/17/2017 at 10:[address] Jayden Adams' office. Laxmichand MD Olivier DR: SHANA/dori JOB# [id number]
--- NOTE | 2017-07-12 20:06 | PNH ---
DATE: 07/11/2017 SUBJECTIVE: The patient is a 76-year-old white male who was admitted late night of 07/10/2017 with history of SVT with a fairly broad QRS complex, although it appears to be an AVNRT based on the configuration and had significant ST depression and rate was about 180 and was given Adenocard with control of the rate and regular sinus rhythm. One can see short IL interval and early delta wave and so the patient probably has underlying WPW syndrome and because of history of chest pain with significant ST depression, cardiac catheterization was done, which showed left main was patent. LAD had diffuse disease with proximal 75-80% stenosis followed by another sequential significant stenosis and mid LAD had 90% stenosis. The diagonal branch has 80% stenosis. The circumflex proximally has 85-90% stenosis and good targets in the distal LAD and the first obtuse marginal branch, which has got an ostial 85-90% stenosis. Right coronary artery has got a mid 70% stenosis with prebifurcation 70% stenosis and a very small posterior descending branch, which is not a good target vessel. LV function is intact and atherosclerosis and ectasia of the distal aorta with a significant calcification of both the coronaries and the peripheral vessels with no significant flow obstruction at the level of the popliteal and runoff was documented in both lower legs beyond popliteal. The patient probably requires ablation because he has had repeated episodes of palpitations and SVT, then bypass surgery and in view of his coronary anatomy, the vessels were not amenable to intervention because of his severe heavy calcification and there are good targets on the LAD and the first obtuse marginal branch. I talked with Dr. Jayden Adams and he will have an appointment with him on Monday next week, which is 07/17/2017 at 10:00 in his office in [place]. radiologic electronic specialist and CV surgeon will get together and deal with the bypass surgery and ablation as needed. Deneen Aguayo MD DR: SHANA/dori JOB# [id number]
== END 2017-07-12 13:39 | disposition home or self-care (01) | DRG 287 ==
LOC: ER 19:19 → MS 20:34 → EDBEDREQ 20:43
PROVIDERS: ADMIT Specialist; ATTEND Specialist
PROC: 4A023N7 Measurement of Cardiac Sampling and Pressure, Left Heart, Percutaneous Approach (ICD-10-PCS; principal; 2017-07-11)
PROC: B2111ZZ Fluoroscopy of Multiple Coronary Arteries using Low Osmolar Contrast (ICD-10-PCS; 2017-07-11)
PROC: B2151ZZ Fluoroscopy of Left Heart using Low Osmolar Contrast (ICD-10-PCS; 2017-07-11)
DX: I47.1 Supraventricular tachycardia (principal); E88.09 Other disorders of plasma-protein metabolism, not elsewhere classified; I50.32 Chronic diastolic (congestive) heart failure; I13.0 Hypertensive heart and chronic kidney disease with heart failure and stage 1 through stage 4 chronic kidney disease, or unspecified chronic kidney disease; N18.2 Chronic kidney disease, stage 2 (mild); J43.9 Emphysema, unspecified; I45.6 Pre-excitation syndrome; K21.9 Gastro-esophageal reflux disease without esophagitis; E78.5 Hyperlipidemia, unspecified; I25.10 Atherosclerotic heart disease of native coronary artery without angina pectoris; Z79.82 Long term (current) use of aspirin; Z79.899 Other long term (current) drug therapy; Z82.49 Family history of ischemic heart disease and other diseases of the circulatory system
CPT/HCPCS: 36415; 71045; 75630; 80053; 80061; 82550; 82553; 83880; 84484; 85025; 85379; 85610; 85730; 93005; 93458; 99152; 99153; C1894; J0153; J1644; J2250; J3010; J7030; Q9967

== ENCOUNTER 2017-07-29 14:29 | Emergency (ER) | payer MEDICARE ==
[~2017-07-29] VITALS: Ht 177.8 cm; Wt 58.1 kg
[~2017-07-29 14:29] MED LIST changes: +ATOR40TA PO; +FLUT1AER IH; +LOSA50TA2 PO; +METO1TAB31 PO; +VERA80TA PO
--- NOTE | 2017-07-29 14:41 | ER.PDOC ---
General Chief Complaint: Requesting Medical Care Stated Complaint: SHORT OF BREATH Time seen by MD: 14:38 Source: patient Exam Limitations: no limitations History of Present Illness Initial Comments Pt states that his nurse visited him today and observed that his BP was high and that he should come to the ER to be evaluated. He is completely asymptomatic , denies CP, SOB,N/V. Timing/Duration: 4-6 hours Activities at Onset: none Prior Episodes/Possible Cause: frequent episodes Associated Symptoms: denies symptoms Allergies: Coded Allergies: No Known Allergies (Unverified , 11/08/15) Home Meds Active Scripts Atorvastatin 40MG (LIPITOR 40MG) 40 Mg Tablet, 40 MG PO DAILY24 for 30 Days, TAB Prov:NARDA MCCLAIN MD 07/12/17 Losartan Potassium (COZAAR) 50 Mg Tablet, 50 MG PO DAILY24 for 30 Days Prov:NARDA MCCLAIN MD 07/12/17 Verapamil Hcl (CALAN) 80 Mg Tablet, 80 MG PO TID for 30 Days, TABLET Prov:NARDA MCCLAIN MD 07/12/17 Reported Medications Fluticasone/Vilanterol (Breo Ellipta 100-25 Mcg INH) 1 Each Aer.pow.ba, 1 EACH IH DAILY24 07/10/17 Aspirin (ASPIR 81) 81 Mg Tablet.dr, 81 MG PO DAILY24 07/10/17 Past Medical History Surgical History: coronary bypass surgery, other Social History Drug Use: none Review of Systems Constitutional: no symptoms reported EENTM: no symptoms reported Respiratory: no symptoms reported Cardiovascular: see HPI, chest pain Gastrointestinal: nausea, vomiting Genitourinary: no symptoms reported Musculoskeletal: no symptoms reported Skin: no symptoms reported Psychiatric/Neurological: no symptoms reported Endocrine: no symptoms reported Hematologic/Lymphatic: no symptoms reported Physical Exam General Appearance: No Apparent Distress, WD/WN HEENT: PERRL/EOMI, Normal ENT Inspection, TMs Normal, Pharynx Normal Neck: Non-Tender, Full Range of Motion, Supple, Normal Inspection Respiratory: chest non-tender, lungs clear, normal breath sounds, no respiratory distress, no accessory muscle use Cardiovascular: Normal Peripheral Pulses, Regular Rate, Rhythm, No Edema, No Gallop, No JVD, No Murmur Gastrointestinal: Normal Bowel Sounds, No Organomegaly, No Pulsatile Mass, Non Tender, Soft Extremities: Normal Range of Motion, Non-Tender, Normal Inspection, No Pedal Edema, No Calf Tenderness, Normal Capillary Refill Neurologic/Psychiatric: ux engineer II-XII NML as Tested, No Motor/Sensory Deficits, Alert, Normal Mood/Affect, Oriented x 3 Skin: Normal Color, Warm/Dry Lymphatic: No Adenopathy Departure Time of Disposition: 15:39 Disposition: 01 HOME, SELF-CARE Impression: Primary Impression: Essential (primary) hypertension Condition: Stable Patient Instructions: Arterial Hypertension, Hypertension Referrals: TONE CAMARENA SALES OPERATIONS DIRECTOR (PCP) PRIMARY CARE PROVIDER Duration or Time Spent with Pa: 15 RAÚL DARDEN MD Jul 29, 2017 14:41
[2017-07-29 14:47] VITALS: BP 162/92
[2017-07-29] MEDS ORDERED: CATAPRES PO STA (15:40)
[2017-07-29] MEDS ORDERED: CATAPRES ONE (15:43)
[2017-07-29 15:55] VITALS: BP 146/85
[2017-07-29 16:03] VITALS: BP 146/85
--- NOTE | 2017-07-29 19:24 | PCM.EKG ---
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
== END 2017-07-29 16:01 | disposition home or self-care (01) ==
LOC: ER 14:29
DX: I10 Essential (primary) hypertension (principal); R11.2 Nausea with vomiting, unspecified; Z79.82 Long term (current) use of aspirin; Z95.1 Presence of aortocoronary bypass graft
CPT/HCPCS: 93005; 99283

== ENCOUNTER → 2018-07-17 | Outpatient (CLI) | payer MEDICARE ==
[~2018-07-17] MED LIST changes: +VERA240T8 PO; -[UNRECOGNIZED DRUG - CODE] PO
--- NOTE | 2018-07-17 18:58 | DIREP ---
PROCEDURE:US DUPLEX LOWER EXTREMITY ARTERY BILAT COMPARISON:None. INDICATIONS:INTERMITTENT CLAUDICATION, PAD TECHNIQUE:A comprehensive color duplex Doppler ultrasound examination of the bilateral lower extremities was performed. Color image and bidirectional spectral Doppler wave form analysis, and peak systolic flow measurements of the common femoral, profunda femoral, superficial femoral, and popliteal arteries were performed. Ankle/brachial indices were measured at the distal posterior tibial artery and anterior tibial/dorsalis pedis. FINDINGS: RIGHT LOWER EXTREMITY: PT LOU: 1.0 AT/DP LOU: 0.5. EXTERNAL ILIAC:Not imaged COMMON FEMORAL:132.7 cm/sBiphasic PROFUNDA FEMORIS:151.6 cm/sBiphasic SUPERFICIAL FEMORAL (prox):136.5 cm/sBiphasic SUPERFICIAL FEMORAL (mid):121.3 cm/sBiphasic SUPERFICIAL FEMORAL (dist):248.7 cm/sBiphasic POPLITEAL (prox):112.9 cm/sBiphasic POPLITEAL (dist):135.9 cm/sMonophasic POSTERIOR TIBIAL (prox):42.7 cm/sMonophasic POSTERIOR TIBIAL (mid):19.1 cm/sMonophasic POSTERIOR TIBIAL (dist):106.5 cm/sTriphasic PERONEAL (prox):Not imaged ANTERIOR TIBIAL (prox):28.9 cm/sBiphasic ANTERIOR TIBIAL (mid):18.5 cm/sMonophasic ANTERIOR TIBIAL (dist):29.0 cm/sBiphasic DORSALIS PEDIS:30.3 cm/sBiphasic LEFT LOWER EXTREMITY: PT LOU: 0.5 AT/DP LOU: 0.63. EXTERNAL ILIAC:Not imaged COMMON FEMORAL:156.6 cm/sBiphasic PROFUNDA FEMORIS:71.9 cm/sMonophasic SUPERFICIAL FEMORAL (prox):71.5 cm/sTriphasic SUPERFICIAL FEMORAL (mid):27.6 cm/sMonophasic SUPERFICIAL FEMORAL (dist):121.5 cm/sBiphasic POPLITEAL (prox):58.4 cm/sMonophasic POPLITEAL (dist):55.9 cm/sMonophasic POSTERIOR TIBIAL (prox):33.3 cm/sMonophasic POSTERIOR TIBIAL (mid):24.6 cm/sMonophasic POSTERIOR TIBIAL (dist):21.9 cm/sMonophasic PERONEAL (prox):30.7 cm/sMonophasic ANTERIOR TIBIAL (prox):39.8 cm/sTriphasic ANTERIOR TIBIAL (mid):25.1 cm/sMonophasic ANTERIOR TIBIAL (dist):22.2 cm/sMonophasic DORSALIS PEDIS:63.6 cm/sMonophasic Extensive atherosclerotic calcifications from peripheral vascular disease on both sides. CONCLUSION:Distal superficial femoral artery velocity elevations on the right with abnormal waveforms throughout the lower extremities. Monophasic waveforms suggest 60-99% stenosis. Biphasic waveforms 29-60%. Abnormal low ABIs posterior right lower extremity and posterior and anterior left lower extremity. ABIs greater than 1.4 indicate noncompressible vessels, likely to have significant peripheral vascular disease (PVD). ABIs of 0.91 to 1.3 indicate no significant obstructive disease. ABIs of 0.41 to 0.90 indicate grade I claudication. ABIs less than 0.4 indicate limb-threatening ischemia of grade I or grade II. % stenosisPSV (cm/s)Velocity ratio0-19<150<[id number]>75>300>4 Dictated by: JABIER Physician on 07/17/2018 at 04:42 PM ld
== END | disposition home or self-care (01) ==
LOC: RAD 14:12
PROVIDERS: ATTEND Specialist
DX: I73.9 Peripheral vascular disease, unspecified (principal)
CPT/HCPCS: 93922; 93925

== ENCOUNTER 2019-11-02 02:59 | Emergency (ER) | payer MEDICARE ==
[~2019-11-02] VITALS: Ht 167.6 cm; Wt 61.2 kg
[~2019-11-02 02:59] MED LIST changes: -ASPI-484 PO; +ASPI-485 PO
[2019-11-02 03:15] VITALS: BP 174/74
[2019-11-02] MEDS ORDERED: CETACAINE SPRAY TP ONE (03:18)
[2019-11-02] MEDS ORDERED: AMOXIL PO STA (03:20)
[2019-11-02] MEDS ORDERED: AMOXIL PO ONE (03:24)
--- NOTE | 2019-11-02 03:25 | ER.PDOC ---
General Chief Complaint: Requesting Medical Care Stated Complaint: POSS STREP Time seen by MD: 03:17 Source: patient Exam Limitations: no limitations History of Present Illness Initial Comments Patient c/o severe sore throat onset 24 hours ago. He was exposed to strep this week. Denies fever. Timing/Duration: gradual Associated Symptoms: severe sore throat Severity: severe Allergies: Coded Allergies: No Known Allergies (Unverified , 11/08/15) Home Meds Active Scripts Atorvastatin 40MG (LIPITOR 40MG) 40 Mg Tablet, 40 MG PO DAILY24 for 30 Days, TAB Prov:NARDA MCCLAIN MD 07/12/17 Losartan Potassium (COZAAR) 50 Mg Tablet, 50 MG PO DAILY24 for 30 Days Prov:NARDA MCCLAIN MD 07/12/17 Verapamil Hcl (CALAN) 80 Mg Tablet, 80 MG PO TID for 30 Days, TABLET Prov:NARDA MCCLAIN MD 07/12/17 Reported Medications Fluticasone/Vilanterol (Breo Ellipta 100-25 Mcg INH) 1 Each Aer.pow.ba, 1 EACH IH DAILY24 07/10/17 Aspirin (ASPIR 81) 81 Mg Tablet.dr, 81 MG PO DAILY24 07/10/17 Past Medical History Medical History: no pertinent history Surgical History: coronary bypass surgery, other Social History Drug Use: none Constitutional: no symptoms reported Eyes: no symptoms reported Ears: no symptoms reported Nose: no symptoms reported Mouth: no symptoms reported Throat: painful swallowing Respiratory: no symptoms reported Cardiovascular: no symptoms reported Gastrointestinal: no symptoms reported Musculoskeletal: no symptoms reported Skin: no symptoms reported Physical Exam General Appearance: alert, no distress Head/Neck: trachea midline, cervical lymphadenopathy (anterior, tender) Eyes: no nystagmus Mouth: no thrush Throat: voice nml, no airway problems, pharyngeal erythema Respiratory: no resp. distress, lungs clear CVS: reg. rate & rhythm, heart sounds nml Abdomen: non-tender Extremities: non-tender Skin Exam: Normal Color, Warm/Dry NEURO/PSYCH: oriented X3, mood/effect nml Results/Orders Results/Orders Orders - FADY GARNETT DO Strep Screen (11/02/19 03:16) Departure Time of Disposition: 03:24 Disposition: 01 HOME, SELF-CARE Impression: Primary Impression: Pharyngitis, acute Qualified Codes: J02.0 - Streptococcal pharyngitis Condition: Stable Patient Instructions: Strep Throat Referrals: NARDA MCCLAIN MD (PCP) PRIMARY CARE PROVIDER Additional Instructions: Take antibiotics as prescribed until all gone. Return to ER if you experience any difficulty breathing or swallowing or for any emergent concern. Follow up with your doctor next week for reevaluation. Duration or Time Spent with Pa: 5 min FADY GARNETT DO Nov 02, 2019 03:25
--- NOTE | 2019-11-02 03:39 | NUR ---
lab called with a positive strep at at this time
== END 2019-11-02 03:33 | disposition home or self-care (01) ==
LOC: ER 02:59
DX: J02.9 Acute pharyngitis, unspecified (principal); Z79.51 Long term (current) use of inhaled steroids; Z79.82 Long term (current) use of aspirin; Z79.899 Other long term (current) drug therapy
CPT/HCPCS: 87880; 99283

== ENCOUNTER 2020-01-12 08:34 | Emergency (ER) | payer MEDICARE ==
[~2020-01-12] VITALS: Ht 177.8 cm; Wt 61.2 kg
[2020-01-12 08:44] VITALS: BP 184/94
[2020-01-12] MEDS ORDERED: KENALOG-40 ONE (08:57)
[2020-01-12] MEDS ORDERED: AFRIN- Non-Preferred NS ONE (08:57)
[2020-01-12] MEDS ORDERED: KENALOG-40 IM ONE (09:00)
[2020-01-12] MEDS ORDERED: AFRIN NS ONE (09:00)
--- NOTE | 2020-01-12 09:01 | ER.PDOC ---
General Chief Complaint: Cough/Congestion Stated Complaint: RESPITORY INF Time seen by MD: 09:00 Source: patient Exam Limitations: no limitations History of Present Illness Timing/Duration: abrupt Severity: mild Associated Symptoms: runny nose, sinus pain/drainage, hoarseness Allergies: Coded Allergies: No Known Allergies (Unverified , 11/08/15) Home Meds Active Scripts Atorvastatin 40MG (LIPITOR 40MG) 40 Mg Tablet, 40 MG PO DAILY24 for 30 Days, TAB Prov:NARDA MCCLAIN MD 07/12/17 Losartan Potassium (COZAAR) 50 Mg Tablet, 50 MG PO DAILY24 for 30 Days Prov:NARDA MCCLAIN MD 07/12/17 Verapamil Hcl (CALAN) 80 Mg Tablet, 80 MG PO TID for 30 Days, TABLET Prov:NARDA MCCLAIN MD 07/12/17 Reported Medications Fluticasone/Vilanterol (Breo Ellipta 100-25 Mcg INH) 1 Each Aer.pow.ba, 1 EACH IH DAILY24 07/10/17 Aspirin (ASPIR 81) 81 Mg Tablet.dr, 81 MG PO DAILY24 07/10/17 All Other Systems: Reviewed and Negative Past Medical History Medical History: asthma, coronary artery disease, COPD, high cholesterol, hypertension, thyroid disease, other Surgical History: coronary bypass surgery Social History Alcohol Use: none Drug Use: none Reviewed Nursing Reviewed: Vital Signs, Abn. Noted Physical Exam General Appearance: alert, no distress Eye: eyes nml inspection, lids & conjunct. nml, PERRL, no nystagmus Ear: ear nml Nose: nose nml Throat: pharynx nml, airway nml Neck: nml inspection, supple Abdomen: non-tender, no organomegaly CVS: reg rate & rhythm, heart sounds nml Skin: color nml, no rash, warm/dry Extremities: non-tender, nml ROM, no pedal edema NEURO/PSYCH: oriented x 3, CN's nml as tested, motor nml, sensation nml, mood/affect nml Results/Orders Results/Orders Orders - ESVIN DONIS MD Triamcinolone Acetonide (Kenalog-40) (01/12/20 09:00) Oxymetazoline Hcl (Afrin) (01/12/20 09:00) Influenza A&B (01/12/20 08:54) Strep Screen (01/12/20 08:54) Oxymetazoline Hcl (Afrin- Non-Preferred) (01/12/20 08:57) Triamcinolone Acetonide (Kenalog-40) (01/12/20 08:57) Novel Coronavirus 2019(Dshs) (01/12/20 09:09) Vital Signs Date Time Temp Pulse Resp B/P (MAP) Pulse Ox O2 Delivery O2 Flow Rate FiO2 01/12/20 08:44 97.7 71 16 01/12/20 08:44 97.7 71 16 184/94 (124) 94 Room Air 01/12/20 08:44 97.7 71 16 94 Administered Medications Medications (Trade) Dose Ordered Sig/Chan Route PRN Reason Start Time Stop Time Status Last Admin Dose Admin Oxymetazoline HCl (Afrin) 1 sprays OT ONCE NS 01/12/20 09:00 01/12/20 09:01 DC 01/12/20 09:09 1 SPRAYS Triamcinolone Acetonide (Kenalog-40) 40 mg OT ONCE IM 01/12/20 09:00 01/12/20 09:01 DC 01/12/20 09:09 40 MG Laboratory Tests Test 01/12/20 09:05 Influenza Type A Antigen NEGATIVE (NEG) Influenza B Immunofluorescence NEGATIVE (NEG) Group A Streptococcus Screen POSITIVE (NEGATIVE) Consult/PCP Time Consult/PCP Called: 09:33 Consult/PCP: dr emerald POOL DEPART Departure Time of Disposition: 09:33 Disposition: 01 HOME, SELF-CARE Impression: Primary Impression: Acute pharyngitis Condition: Stable Referrals: NARDA MCCLAIN MD (PCP) PRIMARY CARE PROVIDER Duration or Time Spent with Pa: ESVIN Gutierrez MD Jan 12, 2020 09:01
--- NOTE | 2020-01-12 09:19 | NUR ---
COVID-19 INSTRUCTED PT AND HIS SPOUSE THAT HE AND HOUSEHOLD WILL NEED TO SELF QUARANTINE AT HOME UNTIL NEGATIVE RESULTS FOR COVID-19 ARE LAB CONFIRMED OR 14 DAYS AFTER START OF SYMPTOMS. THEY HAVE VOICED UNDERSTANDING.
[2020-01-12 09:41] VITALS: BP 173/84
== END 2020-01-12 09:37 | disposition home or self-care (01) ==
LOC: ER 08:34
DX: J02.9 Acute pharyngitis, unspecified (principal); Z20.828 Contact with and (suspected) exposure to other viral communicable diseases; J44.9 Chronic obstructive pulmonary disease, unspecified; I25.10 Atherosclerotic heart disease of native coronary artery without angina pectoris; I10 Essential (primary) hypertension; E78.00 Pure hypercholesterolemia, unspecified; E07.9 Disorder of thyroid, unspecified; Z79.51 Long term (current) use of inhaled steroids; Z79.82 Long term (current) use of aspirin; Z79.899 Other long term (current) drug therapy
CPT/HCPCS: 87635; 87804 ×2; 87880; 96372; 99283; J3301

== ENCOUNTER → 2021-03-31 | Outpatient (CLI) | payer MEDICARE ==
[~2021-03-31] MED LIST changes: +APIX5TAB PO; +ASPI-929 PO; +ATOR20TA PO; +CLOP75TA PO; +FERR325T69 PO; +FLUT1BLS3 IH; +HYDR25TA9 PO; +LEVO50TA6 PO; +LEXISCAN IV STA; +LOSA25TA12 PO; +MAGN200T PO; +MULT-632 PO; +UBID200C7 PO; -VERA240T8 PO; +VITA1TAB31 PO; +[UNRECOGNIZED DRUG - CODE] PO; +[UNRECOGNIZED DRUG - CODE] PO
--- NOTE | 2021-04-01 01:41 | STRESS ---
DATE OF SERVICE: 03/31/2021 DICTATOR NAME: RONALD MUIR DO CARDIAC STRESS TEST INDICATION: Chest pain. FINDINGS: Baseline EKG shows normal sinus rhythm with nonspecific ST-T wave changes. Stress EKG shows normal sinus rhythm, unchanged from baseline. At the end of recovery, EKG shows sinus bradycardia, unchanged from baseline. Baseline heart rate was 63 beats per minute and ariane to 69 beats per minute during stress. At the end of recovery, the heart rate was 54 beats per minute. Baseline blood pressure is 135/71 and remained the same during stress. At the end of recovery, the blood pressure was 160/45. Blood pressure and heart rate were appropriate for stress. There were no significant symptoms noted during stress. There were no arrhythmias noted during stress. EKG portion of stress test is negative for myocardial ischemia. Nuclear images were obtained with a rest dose of 11.8 mCi technetium-99 sestamibi, and a stress dose of 32.8 mCi technetium 99 sestamibi. Nuclear images reveal a moderate-sized area of reversible perfusion defect involving the inferior wall, suggestive of myocardial ischemia. Left ventricular ejection fraction is 66%. EDV is 47 mL, ESV is 16 mL. The left ventricle is normal in size. Gated motion images showed normal wall motion across all segments of the left ventricle. TID is 1.1. There is no evidence of diaphragmatic attenuation artifact. IMPRESSION: 1. There is a moderate-sized area of reversible perfusion defect involving the inferior wall, suggestive of myocardial ischemia. 2. There is no evidence of myocardial infarction. 3. This is an abnormal study. Recommend left heart catheterization. Dylan SMITH D.O. DR: LIAM TID: [id number] RECEIPT: [id number]
== END | disposition home or self-care (01) ==
LOC: RAD 08:55
PROVIDERS: ATTEND Internal Medicine Interventional Cardiology
DX: R00.0 Tachycardia, unspecified (principal); R94.31 Abnormal electrocardiogram [ECG] [EKG]; R07.9 Chest pain, unspecified
CPT/HCPCS: 78452; 93017; A9500; J2785

== ENCOUNTER 2021-04-09 09:44 | Emergency (ER) | payer MEDICARE ==
[~2021-04-09] VITALS: Ht 177.8 cm; Wt 59.9 kg
[~2021-04-09 09:44] MED LIST changes: -ASPI-929 PO; -CLOP75TA PO; -LEXISCAN IV STA
--- NOTE | 2021-04-09 10:10 | NUR ---
Patient arrives to ED. Steady gait to ED rm3. Pt c/o 'tickle' to back of throat and congestion x1 day. Pt VSS recorded. Pt states he would like a 'covid test to be safe'. Seen by Awaiting results.
[2021-04-09 10:57] VITALS: BP 167/83
--- NOTE | 2021-04-09 11:47 | ER.PDOC ---
General Chief Complaint: Requesting Medical Care Stated Complaint: SINUS Time seen by MD: 12:00 Source: patient Exam Limitations: no limitations History of Present Illness Timing/Duration: gradual Context: recent forgeign travel Severity: mild Associated Symptoms: runny nose Allergies: Coded Allergies: No Known Allergies (Unverified , 04/08/21) Home Meds Reported Medications Vitamin D3/Menaquinone 7 (D3 + K2 DOTS 1,000 UNITS TAB) 1 Each Tab.rapdis, 1 TAB PO QD for 30 Days, #30 TAB 0 Refills 04/08/21 Ubidecarenone (CO Q-10) 200 Mg Capsule, 1 CAP PO QD for 30 Days, #30 CAP 0 Refills 04/08/21 Cyanocobalamin (Vitamin B-12) (Vitamin B-12) 1,000 Mcg Capsule, 1 CAP PO QD for 30 Days, #30 CAP 0 Refills 04/08/21 Multivitamin (Multi Vitamin Daily) 1 Each Tablet, 1 TAB PO QD for 30 Days, #30 TAB 0 Refills 04/08/21 Hydrochlorothiazide (HYDROCHLOROTHIAZIDE) 25 Mg Tablet, 1 TAB PO DAILY, #30 TAB 5 Refills 04/08/21 Losartan Potassium (LOSARTAN POTASSIUM) 25 Mg Tablet, 1 TAB PO DAILY, #90 TAB 1 Refill 04/08/21 Fluticasone/Umeclidin/Vilanter (Trelegy Ellipta 100-62.5-25) 100-62.5 Blst.w.dev, 1 PUFF IH Q48H 04/08/21 Verapamil Hcl (VERAPAMIL ER) 240 Mg Cap24h.pel, 80 MG PO BID, CAPSULE 04/08/21 Atorvastatin 20MG (LIPITOR 20MG) 20 Mg Tablet, 1 TAB PO DAILY, #90 TAB 1 Refill 04/08/21 Levothyroxine Sodium (LEVOTHYROXINE SODIUM) 50 Mcg Tablet, 1 TAB PO DAILY, #30 TAB 5 Refills 04/08/21 Apixaban (Eliquis) 5 Mg Tablet, 5 MG PO BID, TABLET 04/08/21 Magnesium (MAGNESIUM) 200 Mg Tablet, 1 TAB PO QD for 30 Days, #30 TAB 0 Refills 04/08/21 Ferrous Sulfate (FEOSOL) 325 Mg Tablet, 1 TAB PO QD for 30 Days, #30 TAB 0 Refills 04/08/21 Discontinued Reported Medications Fluticasone/Vilanterol (Breo Ellipta 100-25 Mcg INH) 1 Each Aer.pow.ba, 1 EACH IH DAILY24 07/10/17 Aspirin (ASPIR 81) 81 Mg Tablet.dr, 81 MG PO DAILY24 07/10/17 Discontinued Scripts Atorvastatin 40MG (LIPITOR 40MG) 40 Mg Tablet, 40 MG PO DAILY24 for 30 Days, TAB Prov:NARDA MCCLAIN MD 07/12/17 Losartan Potassium (COZAAR) 50 Mg Tablet, 50 MG PO DAILY24 for 30 Days Prov:NARDA MCCLAIN MD 07/12/17 Verapamil Hcl (CALAN) 80 Mg Tablet, 80 MG PO TID for 30 Days, TABLET Prov:NARDA MCCLAIN MD 07/12/17 All Other Systems: Reviewed and Negative Past Medical History Medical History: cardiac problems, hypertension Surgical History: cardiac cath, coronary bypass surgery Social History Alcohol Use: none Drug Use: none Physical Exam General Appearance: alert, no distress Eye: eyes nml inspection, lids & conjunct. nml, PERRL, no nystagmus Ear: ear nml Nose: rhinorrhea Throat: pharynx nml, airway nml Neck: nml inspection, supple Respiratory: no resp.distress, breath sounds nml Abdomen: non-tender, no organomegaly CVS: reg rate & rhythm, heart sounds nml Skin: color nml, no rash, warm/dry Extremities: non-tender, nml ROM, no pedal edema NEURO/PSYCH: oriented x 3, CN's nml as tested, motor nml, sensation nml, mood/affect nml Results/Orders Results/Orders Orders - ESVIN DONIS MD Covid19 Antigen Falguni Mi (04/09/21 11:04) Vital Signs Date Time Temp Pulse Resp B/P (MAP) Pulse Ox O2 Delivery O2 Flow Rate FiO2 04/09/21 10:57 98.1 73 16 96 04/09/21 10:57 98.1 73 16 96 Room Air 04/09/21 10:57 98.1 73 16 Laboratory Tests Test 04/09/21 10:46 SARS-CoV-2 Antigen (Rapid) NEGATIVE (NEGATIVE) ER DEPART Departure Time of Disposition: 11:55 Disposition: 01 HOME / SELF CARE / HOMELESS Impression: Primary Impression: URI (upper respiratory infection) Condition: Improved Referrals: NARDA MCCLAIN MD (PCP) PRIMARY CARE PROVIDER Duration or Time Spent with Pa: 11m ESVIN DONIS MD Apr 09, 2021 11:47
--- NOTE | 2021-04-09 12:05 | NUR ---
Pt discharge in place. DC packet printed with education and instructions for URI, prescription written and follow-up recommendations. Reviewed all with patient. Verbalizes understanding. Pt ambulatory to exit.
== END 2021-04-09 12:09 | disposition home or self-care (01) ==
LOC: ER 09:44
DX: J06.9 Acute upper respiratory infection, unspecified (principal); I10 Essential (primary) hypertension; Z20.822 Contact with and (suspected) exposure to COVID-19; Z79.01 Long term (current) use of anticoagulants; Z79.51 Long term (current) use of inhaled steroids; Z79.82 Long term (current) use of aspirin; Z79.899 Other long term (current) drug therapy
CPT/HCPCS: 87426; 99283

== ENCOUNTER 2021-04-12 07:25 | Day surgery (SDC) | payer MEDICARE ==
[2021-04-08 11:59] VITALS: BP 134/68
--- NOTE | 2021-04-08 11:59 | PCM.EKG ---
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
[2021-04-08 12:14] LABS: BASOPHIL # 0.1 10^3/uL (0.0-0.1); BASOPHIL % 1.2 % (0.0-0.2); EOSINOPHIL # 0.2 10^3/uL (0.0-0.2); EOSINOPHIL % 3.9 % (0.0-5.0); LYMPHOCYTES # 0.81 10^3/uL1 (1.0-4.8); LYMPHOCYTES % 19.9 % (24.0-44.0); MEAN CORP HGB 31.6 pg (26-34); MONOCYTES # 0.4 10^3/uL (0.3-0.8); MONOCYTES % 9.6 % (5.0-12.0); NEUTROPHIL # 2.7 10^3/uL (1.8-7.7); NEUTROPHILS % 65.2 % (41.0-85.0); PLATELET COUNT 206 10^3/uL (150-400); RED CELL DISTRIBUTION WIDTH 14.3 % (11.5-14.5)
[2021-04-08 12:37] LABS: CARBON DIOXIDE 30.3 mmol/L (20.0-32)
[~2021-04-12] VITALS: Ht 172.7 cm; Wt 59.9 kg
[2021-04-12 07:25] VITALS: BP 141/68
[2021-04-12] MEDS: NS 1000ML 1,000 ML IV SCH ×2 (07:33→17:42)
--- NOTE | 2021-04-12 12:30 | NUR ---
RECEIVED PT RECEIVED FROM WATER PURIFIER, TRANSFERRED TO BED, INSTRUCTED ON POST CATH INSTRUCTIONS, NOT TO RAISE HEAD AND DO NOT LIFT LEGS, VOICED UNDERSTANDING, CALL LIGHT WITH IN REACH AND SIDE RAILS UP X2, HEART CATH SITE RT GROIN, C/D/I. ORIENTED TO ROOM AND DISCUSSED POC QUESTIONS ANSWERED, VOICED UNDERSTANDING, SEE SPECIAL V/S FOR V/S
[2021-04-12 12:52] VITALS: BP 155/71
--- NOTE | 2021-04-12 14:57 | [facility] ---
DATE OF SERVICE: 04/12/2021 DICTATOR NAME: RONALD MUIR DO INDICATIONS: Abnormal cardiac ischemic workup. This is a 80-year-old male who presented to the outpatient setting where he underwent cardiac ischemic workup that was noted to be abnormal. He was then set up for left heart catheterization after informed consents were obtained, PROCEDURES PERFORMED: 1. Severe stenosis (99%) of the saphenous venous graft to the obtuse marginal artery, status post successful percutaneous coronary intervention with a [place] 3.5 x 18 mm drug-eluting stent. 2. Selective coronary angiography. 3. Saphenous venous graft angiography. 4. Aortogram. 5. Left ventriculography. 6. Hemostasis established using a 6-[place] Angio-Seal. PROCEDURAL DETAILS: Access was obtained using a 6-[place] sheath to cannulate the right common femoral artery. A Dorothy left catheter was then used to perform diagnostic angiography. The left main was noted to be angiographically normal. It bifurcates into left anterior descending artery and the left circumflex artery. The left anterior descending artery is noted to be severely diseased and heavily calcified in the proximal to mid segment with a chronically totally occluded LAD in the mid segment. It gives off 2 diagonal branches that are noted to be small vessels with severe disease. The ramus intermedius branch is also noted to be severely diseased. The left circumflex artery is noted to be nondominant. It has severe stenosis involving the mid to distal segments. It gives rise to 3 obtuse marginal branches that are small caliber vessels and are noted to be severely diseased. Biphasic flow is visualized in the second obtuse marginal branch. The Dorothy left catheter was then exchanged for a Dorothy right catheter, which was used to engage the RCA. RCA angiography showed a severe stenosis of the proximal RCA as well as a focal stenosis of the mid RCA. 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 The Dorothy right catheter was then used to engage the SVG graft to the obtuse marginal branch. SVG angiography revealed subtotal occlusion of the proximal segment of the SVG graft to the obtuse marginal branch. The Dorothy right catheter was used to engage the SVG graft to the LAD. SVG graft to the LAD shows a 20% proximal lesion in the SVG graft to the LAD. The remaining segments of the graft are noted to be widely patent. Antegrade flow is visualized in the mid to distal LAD with retrograde flow to the mid to proximal LAD. Dorothy right catheter was used to engage the SVG graft to the RCA. SVG to the RCA is noted to be widely patent. The patient is noted to have 3-vessel bypass, so I did not engage the left internal mammary artery. At this point, I then exchanged the Dorothy right catheter for a pigtail catheter, which was used to cross the aortic valve into the left ventricle. Left ventriculography was performed. LVEF was noted to be 45%. Upon pullback of the pigtail catheter, there was no gradient across the aortic valve. LVEDP was noted to be 10. Aortogram was performed of the ascending aorta to assess for any other grafts. The pigtail catheter was then exchanged for a Dorothy right catheter, which was used to engage the SVG graft to the OM. I elected to perform intervention in the graft. Using a Runthrough wire, the lesion in the SVG graft was successfully crossed. Using a [place] 2.0 x 12 mm compliant balloon, balloon angioplasty was carried out, blocking the lesion in the proximal segment of the SVG graft to the obtuse marginal branch. This was then followed by deployment of a [place] 3.5 x 18 mm drug-eluting stent across the ostial to proximal segment. The stent was noted to be well opposed to the wall of the vessel with 0% residual stenosis. LIBBY 3 flow was restored in the SVG graft to the OM branch. The wire and the guide were taken out and hemostasis was established using a 6-[place] Angio-Seal. 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 There were no complications. IMPRESSION: 1. Severe stenosis (99%) of the SVG graft to the obtuse marginal artery, status post successful percutaneous coronary intervention with a drug-eluting stent. 2. Patent SVG graft to the left anterior descending. 3. Patent SVG graft to the right coronary artery. 4. Severe disease noted in all chitina epicardial vessels. 5. Saphenous venous graft angiography. 6. Selective coronary angiography. 7. Left ventriculography. 8. Aortogram. 9. Left ventricular ejection fraction of 45%. 10. Left ventricular end-diastolic pressure of 10. 11. Hemostasis established using a 6-[place] Angio-Seal. RECOMMENDATIONS: The patient is to remain on dual antiplatelet therapy as well as statin therapy. Lifestyle modification factors have been strongly advised. The patient will be kept overnight for anticipated discharge in the morning. Dylan SMITH D.O. DR: ELIGIO MERINO: [phone] RECEIPT: [id number]
[2021-04-12 15:48] VITALS: BP 151/81
[2021-04-12 20:07] VITALS: BP 131/74
[2021-04-12] MEDS: ELIQUIS PO SCH (21:29)
[2021-04-12] MEDS: CALAN PO SCH (21:30)
[2021-04-12 23:51] VITALS: BP 126/55
[2021-04-13] MEDS: NS 1000ML 1,000 ML IV SCH (02:00)
[2021-04-13 04:15] VITALS: BP 154/87
[2021-04-13] MEDS ORDERED: SYNTHROID PO SCH (06:30)
[2021-04-13 08:33] VITALS: BP 162/77
[2021-04-13] MEDS ORDERED: ASPIRIN EC PO SCH (09:00)
[2021-04-13] MEDS ORDERED: MAG-OX PO SCH (09:00)
[2021-04-13] MEDS ORDERED: COZAAR PO SCH (09:00)
[2021-04-13] MEDS ORDERED: VITAMIN B-12 PO SCH (09:00)
[2021-04-13] MEDS ORDERED: THERA PO SCH (09:00)
[2021-04-13] MEDS ORDERED: LIPITOR PO SCH (09:00)
[2021-04-13] MEDS ORDERED: FERROUS SULFATE PO SCH (09:00)
[2021-04-13] MEDS ORDERED: PLAVIX PO SCH (09:00)
[2021-04-13] MEDS ORDERED: HYDROCHLOROTHIAZIDE PO SCH (09:00)
[2021-04-13] MEDS ORDERED: VITAMIN D PO SCH (09:00)
[2021-04-13] MEDS: CALAN PO SCH (09:42)
[2021-04-13] MEDS: ELIQUIS PO SCH (09:43)
[2021-04-13] MEDS ORDERED: ASPI-929 PO (09:48)
[2021-04-13] MEDS ORDERED: CLOP75TA PO (09:48)
--- NOTE | 2021-04-13 09:55 | PRM.DC ---
Discharge Summary Date of Discharge: Apr 13, 2021 Time of Request to Discharge: 09:51 Hospital Course This is a 80-year-old male who presented to the outpatient setting where he underwent cardiac ischemic workup that was noted to be abnormal. He was then set up for left heart catheterization after informed consents were obtained, LHC performed yesterday revealed : 1. Severe stenosis (99%) of the saphenous venous graft to the obtuse marginal artery, status post successful percutaneous coronary intervention with a Resolute [place] 3.5 x 18 mm drug-eluting stent. 2. Selective coronary angiography. 3. Saphenous venous graft angiography. 4. Aortogram. 5. Left ventriculography. 6. Hemostasis established using a 6-[place] Angio-Seal. Patient will be discharged home today, to follow up with Cardiology in 2 weeks General: Alert, Oriented X3 HEENT: Atraumatic, PERRLA, EOMI Neck: Supple, No JVD, No thyromegaly Lungs: Clear to auscultation Heart: Regular rate, Normal S1, Normal S2 Abdomen: Normal bowel sounds, Soft Extremities: No clubbing, No cyanosis, No edema Neuro: Normal gait Scheduled Apixaban (Eliquis), 5 MG PO BID, (Reported) Aspirin (Aspirin Ec), 81 MG PO DAILY Atorvastatin 20MG (Lipitor 20MG), 1 TAB PO DAILY, (Reported) Clopidogrel Bisulfate (Clopidogrel), 75 MG PO DAILY Cyanocobalamin (Vitamin B-12) (Vitamin B-12), 1 CAP PO QD, (Reported) Ferrous Sulfate (Feosol), 1 TAB PO QD, (Reported) Fluticasone/Umeclidin/Vilanter (Trelegy Ellipta 100-62.5-25), 1 PUFF IH Q48H, (Reported) Hydrochlorothiazide (Hydrochlorothiazide), 1 TAB PO DAILY, (Reported) Levothyroxine Sodium (Levothyroxine Sodium), 1 TAB PO DAILY, (Reported) Losartan Potassium (Losartan Potassium), 1 TAB PO DAILY, (Reported) Magnesium (Magnesium), 1 TAB PO QD, (Reported) Multivitamin (Multi Vitamin Daily), 1 TAB PO QD, (Reported) Ubidecarenone (Co Q-10), 1 CAP PO QD, (Reported) Verapamil Hcl (Verapamil Er), 80 MG PO BID, (Reported) Vitamin D3/Menaquinone 7 (D3 + K2 Dots 1,000 Units Tab), 1 TAB PO QD, (Reported) Discontinued Medications Aspirin (Aspir 81), 81 MG PO DAILY24, (Reported) Discontinued Reason: No Longer Taking Atorvastatin 40MG (Lipitor 40MG), 40 MG PO DAILY24 Discontinued Reason: No Longer Taking Fluticasone/Vilanterol (Breo Ellipta 100-25 Mcg INH), 1 EACH IH DAILY24, (Reported) Discontinued Reason: No Longer Taking Losartan Potassium (Cozaar), 50 MG PO DAILY24 Discontinued Reason: Discontinue Verapamil Hcl (Calan), 80 MG PO TID Discontinued Reason: Discontinue Sepsis Evaluation @ Discharge 04/12/21 20:00 Constitutional: denies no symptoms reported, denies see HPI, denies chills, denies diaphoresis, denies fever, denies malaise, denies weakness, denies other EENTM: denies no symptoms reported, denies see HPI, denies eye pain, denies blurred vision, denies tearing, denies double vision, denies ear pain, denies ear discharge, denies nose pain, denies nose congestion, denies throat pain, denies throat swelling, denies mouth pain, denies mouth swelling, denies other Respiratory: denies no symptoms reported, denies see HPI, denies cough, denies orthopnea, denies shortness of breath, denies SOB with exertion, denies SOB at rest, denies stridor, denies wheezing, denies other Cardiovascular: denies no symptoms reported, denies see HPI, denies chest pain, denies edema, denies irregular heart rate, denies lightheadedness, denies palpitations, denies syncope, denies other ABD/GI (ROS): denies no symptoms reported, denies see HPI, denies abdomen distended, denies abdominal pain, denies blood streaked bowels, denies constipated, denies diarrhea, denies difficulty swallowing, denies nausea, denies poor appetite, denies poor fluid intake, denies rectal bleeding, denies vomiting, denies other Musculoskeletal: denies no symptoms reported, denies see HPI, denies back pain, denies gout, denies joint pain, denies joint swelling, denies muscle pain, denies muscle stiffness, denies neck pain, denies other Endocrine: denies no symptoms reported, denies see HPI, denies excessive sweating, denies flushing, denies intolerance to cold, denies intolerance to heat, denies increased hunger, denies increased thrist, denies increased urine, denies unexplained weight gain, denies unexplaned weight loss, denies other Plan Assessment 1. Severe stenosis (99%) of the saphenous venous graft to the obtuse marginal artery, status post successful percutaneous coronary intervention with a Resolute [place] 3.5 x 18 mm drug-eluting stent. 2. History of Coronary artery bypass surgery 3. Hypertension 4. Paroxysmal atrial fibrillation 5. COPD 6. Hyperlipidemia 7. Hypothyroidism Discharge Date: Apr 13, 2021 Dicharge DX: Coronary artery disease s/p stent Discharge Disposition: GURMEET Núñez APRN, NP Apr 13, 2021 09:55 RONALD MUIR DO Apr 13, 2021 11:01
[2021-04-13 11:20] VITALS: BP 162/77
--- NOTE | 2021-04-13 11:30 | NUR ---
1125 Discharged patient via wheelchair, discharged instruction provided.
== END 2021-04-13 09:49 | disposition home or self-care (01) ==
LOC: CCL 07:25 → UNDOADMIN 12:43 → MS 12:43 → CCL 04-13 09:49 → UNDODISIN 04-13 11:29
PROVIDERS: ATTEND Internal Medicine Interventional Cardiology
DX: I25.10 Atherosclerotic heart disease of native coronary artery without angina pectoris (principal); I10 Essential (primary) hypertension; J45.909 Unspecified asthma, uncomplicated; I87.2 Venous insufficiency (chronic) (peripheral); I70.213 Atherosclerosis of native arteries of extremities with intermittent claudication, bilateral legs; I48.0 Paroxysmal atrial fibrillation; E78.5 Hyperlipidemia, unspecified; E03.9 Hypothyroidism, unspecified; J44.9 Chronic obstructive pulmonary disease, unspecified; I45.6 Pre-excitation syndrome; Z79.82 Long term (current) use of aspirin; Z82.49 Family history of ischemic heart disease and other diseases of the circulatory system; Z80.9 Family history of malignant neoplasm, unspecified; Z95.1 Presence of aortocoronary bypass graft; Z79.01 Long term (current) use of anticoagulants
CPT/HCPCS: 36415; 75625; 80053; 85025; 85610; 85730; 93005; 93459; 99152; 99153 ×2; C1725; C1760; C1769; C1874; C1887; C1894 ×3; C9600; J7030 ×3; Q9967; 87426; C9601; G0378; C1758

== ENCOUNTER → 2021-04-16 | Outpatient (CLI) | payer MEDICARE ==
[~2021-04-16] MED LIST changes: +ASPI-929 PO; +CLOP75TA PO
== END | disposition home or self-care (01) ==
LOC: NPLAB 14:40
PROVIDERS: ATTEND Nurse Practitioner Adult Health
DX: U07.1 COVID-19 (principal)
CPT/HCPCS: 87426

== ENCOUNTER → 2021-05-21 | Outpatient (CLI) | payer MEDICARE ==
--- NOTE | 2021-05-21 16:20 | PCM.ECHO ---
APPROVED REPORT EXAM: Comprehensive 2D, Doppler, and color-flow Echocardiogram. Patient Location: OUT-PATIENT Indications Hypertension/HDD 2D Dimensions LVOT Diameter 2.18 (1.8-2.4cm) LVEF(%) 60.89 (>50%) M-Mode Dimensions RVDd 1.05 (2.1-3.2cm) Left Atrium(MM) 3.50 (2.5-4.0cm) IVSd 0.95 (0.7-1.1cm) Aortic Root 3.00 (2.2-3.7cm) LVDd 6.65 (4.0-5.6cm) Aortic Cusp Exc 1.40 (1.5-2.0cm) PWd 0.70 (0.7-1.1cm) MV EPSS 0.95 (<0.5cm) IVSs 1.60 cm FS (%) 33.30 % LVDs 4.40 (2.0-3.8cm) ESV(Teich) 89.98 ml PWs 1.30 cm LVEF(%) 60.75 (>50%) Volumes Biplane 2D LV Volumes Biplane 2D LA Volumes LVEDv A4C 91.00 mL LA ESV Index LVESv A4C 35.60 mL Aortic Valve AoV Peak Harsh. 1.85 m/s AoV VTI 39.30 cm AO Peak GR. 14.35 mmHg AO Mean GR. 8.35 mmHg LVOT VTI 20.81 cm LVOT Peak Harsh. 0.86 m/s TUTU(VTI)/BSA 1.97 cm2/m2 TUTU (VTI) 1.97 cm2 AI P 1/2 Time 482.40 ms Mitral Valve MV E Velocity 0.70m/s MR Peak Gr. 50.95mmHg MV A Velocity 0.85m/s TDI Lateral E' P. V 0.16m/s Medial E' P. V 0.10m/s Pulmonary Valve PV Peak Velocity 0.50m/s PV Peak Grad. 1.20mmHg RVOT VTI 13.04cm Tricuspid Valve TR P. Velocity 1.55m/s RAP ESTIMATE 10.00mmHg TR Peak Gr. 10.23mmHg RVSP 20.23mmHg LEFT VENTRICLE The left ventricle is normal size. The left ventricular systolic function is normal. The left ventricular ejection fraction is within the normal range. There is normal left ventricular wall thickness. There is normal LV segmental wall motion. There is no ventricular septal defect visualized. No left ventricle thrombus noted on this study. LVEF is 60-65%. RIGHT VENTRICLE The right ventricle is normal size. The right ventricular systolic function is normal. There is normal right ventricular wall thickness. ATRIA The left atrium size is normal. Right atrium is severely dilated. The interatrial septum is intact with no evidence for an atrial septal defect. AORTIC VALVE The aortic valve is normal in structure. Mild aortic stenosis. Moderate to severe aortic regurgitation There is no aortic valvular vegetation. MITRAL VALVE The mitral valve is normal in structure. There is no mitral valve stenosis. Mild to moderate mitral regurgitation. There is no evidence of mitral valve vegetations. TRICUSPID VALVE Tricuspid valve is not well visualized. There is no tricuspid valve stenosis. Mild to moderate tricuspid regurgitation. There is no tricuspid valve vegetations. PULMONIC VALVE Pulmonic valve is not well visualized. There is no pulmonic valvular stenosis. Mild pulmonic regurgitation. GREAT VESSELS Aortic root is normal in size. Pulmonary artery is not well visualized. Aortic arch is not well visualized. The IVC is normal in size and collapses >50% with inspiration. PERICARDIUM There is no pericardial effusion. There is no pleural effusion. Other Information Study Quality: Fair <Conclusion> The left ventricular systolic function is normal. LVEF is 60-65%. Right atrium is severely dilated. Mild aortic stenosis. Moderate to severe aortic regurgitation Mild to moderate mitral regurgitation. Mild tricuspid regurgitation. Mild pulmonic regurgitation. Electronically signed by : RONALD MUIR. 05/21/2021 16:19:59
== END | disposition home or self-care (01) ==
LOC: RT 14:36
PROVIDERS: ATTEND Internal Medicine Interventional Cardiology
DX: I08.8 Other rheumatic multiple valve diseases (principal); I10 Essential (primary) hypertension
CPT/HCPCS: 93306